=== PATIENT | male | born 1955 | race Caucasian/White ===

== ENCOUNTER → 2024-09-06 | Outpatient (BNVA) | payer MEDICARE, SELFPAY | END | disposition home or self-care (01) | PROVIDERS: PCP Family Medicine; Referring Provider Family Medicine; Visit Provider Urology | DX: N40.1 Benign prostatic hyperplasia with lower urinary tract symptoms (principal); R39.12 Poor urinary stream; I10 Essential (primary) hypertension; E78.00 Pure hypercholesterolemia, unspecified; I25.2 Old myocardial infarction; K21.9 Gastro-esophageal reflux disease without esophagitis | CPT/HCPCS: 51741; 51798 ==

== ENCOUNTER → 2024-09-26 | Outpatient (CLI) | payer MEDICARE, SELFPAY | END | disposition home or self-care (01) | PROVIDERS: PCP Family Medicine | DX: R40.4 Transient alteration of awareness (principal); R53.1 Weakness | CPT/HCPCS: 95816 ==

== ENCOUNTER → 2024-11-27 | Outpatient (CLI) | payer MEDICARE, SELFPAY ==
--- NOTE | 2024-11-27 15:45 | XR_ITS ---
Examination: Knee, left , 3 views Technique: Knee AP, lateral, oblique 3 views Date and time of exam: November 27, 2024 1356 hours INDICATIONS: Knee pain one month. FINDINGS: Moderate to advanced tricompartment osteoarthritis Severe narrowing [id number] medial joint space No fracture IMPRESSION: Moderate to advanced tricompartment osteoarthritis
== END | disposition home or self-care (01) ==
PROVIDERS: PCP Internal Medicine; Referring Provider Internal Medicine; Visit Provider Internal Medicine
DX: M17.12 Unilateral primary osteoarthritis, left knee (principal)
CPT/HCPCS: 73564

== ENCOUNTER → 2024-12-05 | Outpatient (CLI) | payer MEDICARE, SELFPAY ==
[2024-12-05 17:57] LABS: PSA Medicare Annual Scrn 3.42 ng/mL (0-4.00)
== END | disposition home or self-care (01) ==
LOC: COPL 16:59
PROVIDERS: PCP Nurse Practitioner Family; Referring Provider Nurse Practitioner Family; Visit Provider Nurse Practitioner Family
DX: Z12.5 Encounter for screening for malignant neoplasm of prostate (principal)
CPT/HCPCS: 36415; 84153; G0103

== ENCOUNTER → 2024-12-06 | Outpatient (CLI) | payer MEDICARE, SELFPAY | END | disposition home or self-care (01) | LOC: SLDO 13:50 | PROVIDERS: Referring Provider Nurse Practitioner Family; Visit Provider Nurse Practitioner Family | DX: N39.0 Urinary tract infection, site not specified (principal) | CPT/HCPCS: 87086 ==

== ENCOUNTER 2025-05-06 16:11 | Emergency (ER) | payer MEDICARE, SELFPAY ==
[2025-05-06 16:22] VITALS: BP 123/79; PULSE 61; RESP 18; TEMP 36.5; O2SAT 98; BMI 32.5
--- NOTE | 2025-05-06 16:27 | XR_ITS ---
Examination: CT abdomen and pelvis without contrast. Coronal 3-D reconstructions. Sagittal 2-D reconstructions. Date and time of exam:May 06, 2025, 1635 hrs., Comparison March 23, 2023 Indications: Severe epigastric pain nausea vomiting beginning 4 hours ago CTDI: vol (mGy): 9.39 DLP: (mGycm): 593. Technique: Axial images of the abdomen have been obtained, 3 mm slice thickness Intravenous contrast material has not been administered. Low dose protocols were performed. One or more of the following dose reduction techniques were used; automated exposure control, adjustment of the mA and/or KV according to patient size, use of iterative reconstruction technique. Findings: No focal liver or splenic lesions No gallstones No pancreatic mass 19 mm fat-containing left adrenal nodule Absent right kidney Solid masses left kidney, anteriorly 27 mm, posteriorly 35 mm Normal appendix Hematoma in the left rectus muscle, 5.8 x 3.6 x 3.6 cm Dilated small bowel loops in the anterior abdomen Left perinephric stranding Prostate is irregular contour, AP dimension 4.6 cm Urinary bladder wall thickening up to 4 mm Advanced degenerative disc disease L4-L5 Impression: Recommend CT scan abdomen pelvis post contrast follow-up to confirm 2 solid left renal mass lesions Hematoma in the left rectus muscle 5.8 x 3.6 x 3.6 cm Prostatomegaly, prostate irregular contour, clinical correlation advised
--- NOTE | 2025-05-06 16:28 | PD.EDRME ---
Rapid Medical Screening Exam RME Arrival date/time: 05/06/25 16:11 This is a case of 69-year-old male with history of gastric and kidney cancer coronary artery disease came in in the emergency room due to generalized abdominal pain nausea vomiting denies any constipation diarrhea and denies any blood in stool persistence of the symptoms this patient decided to start consult her in the emergency room Chief Complaint: Abdominal Pain Time Seen by Provider: 05/06/25 16:15 Vital signs: Vital Signs Temperature 97.7 F 05/06/25 16:22 Pulse Rate 61 05/06/25 16:22 Respiratory Rate 18 05/06/25 16:22 Blood Pressure 123/79 05/06/25 16:22 Pulse Oximetry (%) 98 05/06/25 16:22 Oxygen Delivery Method Room Air 05/06/25 16:22
[2025-05-06 16:57] LABS: Basophils # (Auto) 0.0 Thou/mm3 (0.0-0.2); Basophils % (Auto) 0 % (0-2.5); Eosinophils # (Auto) 0.3 Thou/mm3 (0.0-0.5); Eosinophils % (Auto) 3 % (0-10); Hematocrit 44.0 % (41.0-53.0); Hemoglobin 15.4 g/dL (13.5-16.0); Immature Granulocytes Auto 0.02 Thou/mm3 (0.00-0.00); Lymphocytes # (Auto) 2.1 Thou/mm3 (1.0-4.8); Lymphocytes % (Auto) 23 % (10-50); Mean Corpuscular HGB Conc 35.0 g/dl (31.0-37.0); Mean Corpuscular Hemoglobin 28.6 pg (25.0-35.0); Mean Corpuscular Volume 82 fL (80-100); Monocytes # (Auto) 0.6 Thou/mm3 (0.0-0.8); Monocytes % (Auto) 7 % (0-12); Neutrophils # (Auto) 5.8 Thou/mm3 (1.8-7.7); Neutrophils % (Auto) 66 % (37-80); Nucleated Red Blood Cell # 0.00 Thou/mm3 (0.00-0.00); Nucleated Red Blood Cell % 0 /100 WBC (0); Platelet Count 185 Thou/mm3 (140-440); RDW Standard Deviation 39.8 fL (35.1-43.9); Red Blood Count 5.39 Miln/mm3 (4.50-5.90); White Blood Count 8.8 Thou/mm3 (3.8-10.6)
[2025-05-06 17:35] LABS: Alanine Aminotransferase 24 U/L (10-49); Albumin, Serum 4.5 gm/dL (3.4-4.8); Albumin/Globulin Ratio 1.7 (1.2-2.2); Alkaline Phosphatase 107 U/L (46-116); Anion Gap 15 (7-16); Aspartate Amino Transferase 28 U/L (0-34); BUN/Creatinine Ratio 18 Ratio (12-20); Bilirubin,Total 0.7 mg/dL (0.3-1.2); Blood Urea Nitrogen 21 mg/dL (9-23); Calcium 10.4 mg/dL (8.3-10.6); Calcium (Corrected) 10.4 mg/dL (8.5-10.1); Carbon Dioxide 21.1 mMol/L (20.0-31.0); Chloride 104 mMol/L (98-107); Creatinine (Component) 1.2 mg/dL (0.6-1.3); Estimated Creatinine Clearance 68.6 mL/min (>60); Globulin 2.7 gm/dL (2.3-3.5); Glucose 156 mg/dL (74-106); Lipase 45 U/L (12-53); Osmolality,Calculated 285 (275-295); Potassium 3.8 mMol/L (3.4-5.1); Sodium 140 mMol/L (136-145); Total Protein 7.2 gm/dL (5.7-8.2); eGFR > 60 See Note
[2025-05-06 17:46] LABS: Collection Type, Urine Clean Catch
[2025-05-06 18:25] LABS: Amorphous Crystals,Urine Present (Absent); Bilirubin,Urine Negative (Negative); Blood,Urine Negative (Negative); Clarity,Urine Clear (Clear/Hazy); Color,Urine Yellow (Lt Yel-Yel); Glucose, Urine 4+ (Negative); Ketones,Urine Negative (Negative); Leukocyte Esterase,Urine Negative (Negative); Nitrite,Urine Negative (Negative); PH,Urine 5.5 (5.0-7.0); Protein,Urine Negative (Neg - Trace); RBC,Urine < 1 /hpf (0-3); Specific Gravity,Urine 1.032 (1.001-1.035); Squamous Epithelial Cell,Urine < 1 /hpf (0-5); Urobilinogen,Urine Negative mg/dL (0.0-1.0); WBC,Urine 5 /hpf (0-5)
[2025-05-06] MEDS: ONDANSETRON ODT 4 MG TABRAP PO (18:31)
[2025-05-06] MEDS: MG HYD/AL HYD/SIME (Maalox Reg) SUSP 30 ML UDC PO (18:31)
[2025-05-06] MEDS: LIDOCAINE VISCOUS 2% 15 ML UDC PO (18:31)
[2025-05-06] MEDS: HYDROcodone/APAP 5/325 TABLET 1 TAB PO (18:32)
[2025-05-06] MEDS: FAMOTIDINE 20 MG TABLET 40 MG PO (18:33)
--- NOTE | 2025-05-06 18:44 | PD.EDABDPN ---
ED Abdominal Pain RME/HPI General Chief Complaint: Abdominal Pain Stated complaint: ABD PAIN X 4 HRS Time seen by provider: 05/06/25 16:15 Arrival date/time: 05/06/25 16:11 RME / HPI RME / HPI narrative: 05/06/25 16:11 This is a case of 69-year-old male with history of gastric and kidney cancer coronary artery disease came in in the emergency room due to generalized abdominal pain nausea vomiting denies any constipation diarrhea and denies any blood in stool persistence of the symptoms this patient decided to start consult her in the emergency room ------- See MDM for Dr. An's HPI documentation. Related Data Home Medications ?Medication ?Instructions ?Recorded ?Confirmed aspirin 81 mg chewable tablet 81 mg PO QDAY 11/19/20 09/06/24 atorvastatin 80 mg tablet 80 mg PO QDAY 11/19/20 09/06/24 carvedilol 6.25 mg tablet (Coreg) 6.25 mg PO DAILY PRN Hypertension 08/12/22 09/06/24 clopidogrel 75 mg tablet 75 mg PO QDAY 08/12/22 09/06/24 ezetimibe 10 mg tablet 10 mg PO QDAY 08/12/22 09/06/24 furosemide 20 mg tablet 20 mg PO QDAY 12/31/22 09/06/24 sacubitril 49 mg-valsartan 51 mg 1 tab PO BID 12/31/22 09/06/24 tablet (Entresto) tamsulosin 0.4 mg capsule 0.4 mg PO QHS 04/25/23 09/06/24 spironolactone 25 mg tablet 25 mg PO QDAY 06/12/24 09/06/24 metformin 1,000 mg tablet 1,000 mg PO BID 06/18/24 09/06/24 metoprolol succinate 100 mg 100 mg PO DAILY 06/18/24 09/06/24 tablet,extended release 24 hr hydrocortisone 5 mg tablet 5 mg PO BID 06/19/24 09/06/24 nitroglycerin 0.4 mg sublingual 0.4 mg buccal PRN PRN Chest Pain 06/19/24 09/06/24 tablet Previous Rx's ?Medication ?Instructions ?Recorded amoxicillin 875 mg-potassium 1 tab PO BID #26 tabs 06/19/24 clavulanate 125 mg tablet doxycycline hyclate 100 mg capsule 100 mg PO BID #26 caps 06/19/24 acetaminophen 300 mg-codeine 30 mg 2 tab PO Q8H PRN pain #20 tabs 05/06/25 tablet ondansetron 4 mg disintegrating 4 mg PO TID PRN nausea and 05/06/25 tablet vomiting 30 days #10 tabs Allergies Allergy/AdvReac Type Severity Reaction Status Date / Time No Known Allergies Allergy Verified 05/06/25 16:14 Review of Systems Review of Systems Systems Reviewed: All systems reviewed, normal except as documented Past Medical History Past Medical History NEUROLOGIC: Negative Neurological Disorders CARDIAC: Positive Cardiac Disorders, Myocardial Infarction (x3), Angina (no per pt), Hypercholesterolemia and Hypertension; Negative Congestive Heart Failure RESPIRATORY: Positive Sleep Apnea (cpap at night); Negative Chronic Obstructive Pulmonary Disease (COPD) GASTROINTESTINAL: Positive Gastrointestinal Disorders and Gastroesophageal Reflux Disease GENITOURINARY: Negative Genitourinary Disorders or Renal Disease MUSCULOSKELETAL: Positive Musculoskeletal Disorders (Left knee crooked walk per pt- Physical Therapy 20x need 10 more sessions.) and Arthritis ENDOCRINE: Negative Endocrine Disorders, Diabetes Mellitus Type 1 or Diabetes Mellitus Type 2 HEMATOLOGIC: Negative Blood Disorders OTHER HISTORY: Positive Cancer (renal cell carcinoma); Negative Autoimmune Disease, Falls, Blood Transfusions, Blood Transfusion Reaction, Anesthesia Reactions, Chemotherapy or Radiation Therapy Family History FAMILY HISTORY: Positive Family Cancer (cousin x2) Surgical History SURGICAL: Positive Cardiac Surgery, Coronary Stent (x7) and Nephrectomy Social History SMOKING STATUS: Never smoker SECOND HAND EXPOSURE: No ED Exam Narrative Physical exam: See MDM for Dr. An's physical exam documentation. Course Quality Measures none Orders Category Date Time Status Bedside COVID-19 Antigen Test NOW Care 05/06/25 18:45 Completed Bedside Influenza A&B Antigen Test NOW Care 05/06/25 18:45 Completed Saline [Insert IV] NOW Care 05/06/25 18:[address] abdomen pelvis wo con Stat Exams 05/06/25 16:27 Completed US abdomen limited Stat Exams 05/06/25 18:46 Completed Amylase Stat Lab 05/06/25 16:51 Completed CBC Stat Lab 05/06/25 16:51 Completed Comprehensive Metabolic Panel Stat Lab 05/06/25 16:51 Completed Lipase Stat Lab 05/06/25 16:51 Completed Magnesium Stat Lab 05/06/25 16:51 Completed Urinalysis Stat Lab 05/06/25 17:20 Completed Famotidine [Pepcid] Med 05/06/25 18:16 Discontinued 40 mg PO X1 ONE HYDROcodone*/APAP 5/325 [[place] 5/325] Med 05/06/25 18:16 Discontinued 1 tab PO X1 ONE HYDROmorphone INJ [Dilaudid Inj] Med 05/06/25 18:45 Discontinued 1 mg IVP X1 ONE HYDROmorphone INJ [Dilaudid Inj] Med 05/06/25 19:05 Discontinued 2 mg IVP X1 ONE Lidocaine 2% Viscous [Xylocaine 2% Viscous] Med 05/06/25 18:16 Discontinued 15 ml PO X1 ONE Ondansetron Inj [Zofran Inj] Med 05/06/25 18:45 Discontinued 4 mg IVP X1 ONE Ondansetron Odt [Zofran Odt] Med 05/06/25 18:16 Discontinued 4 mg PO X1 ONE Sodium Chloride 0.9% 1000 ml [Ns] 1,000 ml Med 05/06/25 18:45 Discontinued IV 999 mls/hr mg Hyd/Al Hyd/[place] Susp [Maalox Susp] Med 05/06/25 18:16 Discontinued 30 ml PO X1 ONE Vital Signs Vital signs: Vital Signs Temperature 97.7 F 05/06/25 16:22 Pulse Rate 61 05/06/25 16:22 Respiratory Rate 18 05/06/25 16:22 Blood Pressure 123/79 05/06/25 16:22 Pulse Oximetry (%) 98 05/06/25 16:22 Oxygen Delivery Method Room Air 05/06/25 16:22 Abdominal Pain MDM MDM Narrative MDM Narrative:: This section includes all my notes and documentations, including HPI, PE, and ED course. Jc An MD HPI: 69yo male with a history of kidney cancer s/p right nephrectomy, 3 MIs s/p 7 stents, pancreatic cancer with muscular invasion, HTN, DM presents to the ED for complaints of epigastric pain, nausea, and vomiting that started this afternoon, several hours ago. Patient states his symptoms started after lunch. He vomited everything he ate and his pain has persisted. No other complaints reported. ROS: All negative except as documented in HPI. Physical Exam: General: Alert and oriented. In obvious pain Eyes: Conjunctivae and lids clear. ENT: No nasal congestion. Neck: Supple. Heart: RRR. Lungs: No respiratory distress. Good air movement. No rhonchi, wheezing, rales. Abdomen: Soft, diffuse abdominal pain that's difficult to localize. Normal bowel sounds. No distension. No rebound or guarding. Back: No CVA tenderness. Skin: Warm and dry. Neuro: Alert and oriented X 3. I reviewed all diagnostic test results. My review of the abdominal ultrasound report is NAD. My review of the CT abdomen pelvis report is no acute findings. Blood tests and urine tests are unremarkable. COVID/Influenza negative. At this point, diagnoses include: Stomach flu Treatment here from me included: Dilaudid Zofran IV fluid Significant improvement noted. Recommend outpatient management. Based on my best medical judgment, made decision no further evaluation or treatment indicated at this time. Patient understands and agrees to the discharge instructions customized and printed, see below. Discharge Instructions from Dr. An: 1. After evaluation, you have stomach flu. See attached handout on gastroenteritis. 2. This is caused by virus germs. And we do not have good medications to kill the virus germs. But your immune system will fight it off. 3. Your job is to stay hydrated. But nothing by mouth for 12 hours to rest your stomach. Then clear liquid diet for 24 hours then advance diet slowly as tolerated. Zofran for nausea/vomiting. Increase oral fluid and maintain clear urine. If dark or yellow, increase oral fluid. 4. Do not take any medications to stop your diarrhea. But try to replenish the fluid and electrolytes you are losing. 5. Some good choices are water (but not only water because it will cause electrolyte abnormalities), sports drinks like Gatorade (with less sugar content), coconut water, chicken stock, and other fluid with electrolytes (like Pedialyte). 6. See your private doctor on 05/08/25 for recheck and further care. Ask for help until you are completely better. Ask to review all test results and official radiology reports, to make sure you receive all necessary follow-ups and monitoring. 7. Seek immediate medical care with worsening or with any concerns. Jc An MD Patient data External records reviewed:: [facility] previous records (Per chart review, patient was admitted here on 06/18/24 for AMS.) Clinical information provided by:: patient Social determinants that could affect healthcare access:: none Patient has the following chronic illnesses:: kidney cancer s/p right nephrectomy, 3 MIs s/p 7 stents, pancreatic cancer with muscular invasion, HTN, DM How is presenting disease/condition affected by chronic disease/condition?: exacerbated by Evaluation data The following diagnostics were reviewed and interpreted by me:: lab results and radiology exam(s) Lab and/or radiology exams considered but not ordered:: none Interpretation Summary: I reviewed all diagnostic test results. My review of the abdominal ultrasound report is NAD. My review of the CT abdomen pelvis report is no acute findings. Blood tests and urine tests are unremarkable. COVID/Influenza negative. Medications / Prescriptions Medications or Prescriptions considered but not ordered:: none Medication administrations:: Medication Administration History Discontinued Medications Hydrocodone Bitart/Acetaminophen (Hydrocodone/Apap 5/325 Tablet) 1 tab PO X1 ONE Stop: 05/06/25 18:17 Last Admin: 05/06/25 18:32 Dose: 1 tab Documented By: CJ Al Hydrox/Mg Hydrox/Simethicone (Mg Hyd/Al Hyd/[place] (Maalox Reg) Susp 30 Ml Udc) 30 ml PO X1 ONE Stop: 05/06/25 18:17 Last Admin: 05/06/25 18:31 Dose: 30 ml Documented By: CJ Famotidine (Famotidine 20 Mg Tablet) 40 mg PO X1 ONE Stop: 05/06/25 18:17 Last Admin: 05/06/25 18:33 Dose: 40 mg Documented By: CJ Hydromorphone HCl (Hydromorphone Inj 2 Mg/Ml Vial) 1 mg IVP X1 ONE Stop: 05/06/25 18:46 Last Admin: 05/06/25 19:31 Dose: Not Given Documented By: MARQUITA Non-Admin Reason: Cancelled by Provider Hydromorphone HCl (Hydromorphone Inj 2 Mg/Ml Vial) 2 mg IVP X1 ONE Stop: 05/06/25 19:06 Last Admin: 05/06/25 19:31 Dose: 2 mg Documented By: MARQUITA Sodium Chloride (Ns) 1,000 mls @ 999 mls/hr IV .Q1H1M ONE Stop: 05/06/25 19:45 Last Infusion: 05/06/25 20:35 Dose: Infused Documented By: Admin: 05/06/25 19:30 Dose: 999 mls/hr Documented By: MARQUITA Lidocaine HCl (Lidocaine Viscous 2% 15 Ml Udc) 15 ml PO X1 ONE Stop: 05/06/25 18:17 Last Admin: 05/06/25 18:31 Dose: 15 ml Documented By: CJ Ondansetron HCl (Ondansetron Odt 4 Mg Tabrap) 4 mg PO X1 ONE; Protocol Stop: 05/06/25 18:17 Last Admin: 05/06/25 18:31 Dose: 4 mg Documented By: CJ Ondansetron HCl (Ondansetron Inj 2 Mg/Ml Inj 2 Ml) 4 mg IVP X1 ONE; Protocol Stop: 05/06/25 18:46 Last Admin: 05/06/25 19:31 Dose: 4 mg Documented By: MARQUITA From nm, patient received IV fluid and Dilaudid 2 mg IV and Zofran 4 mg IV. Consultations Consultation(s) initiated? (list below): No Diagnosis Differential diagnosis abdominal pain: acute appendicitis, calculus of kidney, constipation, diverticulitis, endometriosis, gastroenteritis, pancreatitis, small bowel obstruction and other (Gastroenteritis) Most likely diagnosis given after review of the tests above:: Stomach flu Admission Indicated Admission indicated?: not indicated Explain why admission is indicated or not indicated:: With significant improvement and no condition needing emergent intervention, there was no indication for admission. Admission Request Was there a request for admission?: No Disposition Plan Disposition Plan: Discharge Discharge Attestation Discharge Attestation: The patient and all family members were given an opportunity to ask questions and understood the discharge instructions. Discharge instructions specifically effects, indications for sooner follow up or return to the emergency department, and the expected course of current diagnosis. Patient condition: Stable Discharge Plan Plan Patient Disposition: HOME (Self Care) Prescriptions/Referrals Prescriptions/Med Rec: New acetaminophen-codeine 300-30 mg tablet 2 tab PO Q8H MDD 6 PRN (Reason: pain) Qty: 20 0RF ondansetron 4 mg tablet,disintegrating 4 mg PO TID PRN (Reason: nausea and vomiting) 30 Days Qty: 10 0RF No Action ezetimibe 10 mg tablet 10 mg PO QDAY carvedilol [Coreg] 6.25 mg tablet 6.25 mg PO DAILY PRN (Reason: Hypertension) Rx Instructions: must administer with a meal/food. clopidogrel 75 mg tablet 75 mg PO QDAY Entresto 49-51 mg tablet 1 tab PO BID furosemide 20 mg tablet 20 mg PO QDAY tamsulosin 0.4 mg capsule 0.4 mg PO QHS spironolactone 25 mg tablet 25 mg PO QDAY atorvastatin 80 mg Tablet 80 mg PO QDAY aspirin 81 mg Tablet,Chewable 81 mg PO QDAY metoprolol succinate 100 mg tablet extended release 24 hr 100 mg PO DAILY Patient Comments: TAKE 1 TABLET BY MOUTH DAILY metformin 1,000 mg tablet 1,000 mg PO BID Patient Comments: TAKE 1 TABLET BY MOUTH TWICE DAILY WITH A MEAL Rx Instructions: with a meal hydrocortisone 5 mg Tablet 5 mg PO BID nitroglycerin 0.4 mg Tablet, Sublingual 0.4 mg BUCCAL PRN PRN (Reason: Chest Pain) amoxicillin-pot clavulanate 875-125 mg tablet 1 tab PO BID Qty: 26 0RF doxycycline hyclate 100 mg capsule 100 mg PO BID Qty: 26 0RF Referrals: Kunal Iraheta MD [Primary Care Provider, Family Practice] - In 1 week Problem List Clinical Impression: Stomach flu Patient/Caregiver Discharge Instructions Discharge Activity: activity as tolerated Education Materials: ED Gastroenteritis, Viral (Adult) Additional Instructions: Discharge Instructions from Dr. An: 1. After evaluation, you have stomach flu.? See attached handout on gastroenteritis. 2. This is caused by virus germs.? And we do not have good medications to kill the virus germs.? But your immune system will fight it off. 3. Your job is to stay hydrated.? But nothing by mouth for 12 hours to rest your stomach. Then clear liquid diet for 24 hours then advance diet slowly as tolerated. Zofran for nausea/vomiting.? Increase oral fluid and maintain clear urine.? If dark or yellow, increase oral fluid. 4. Do not take any medications to stop your diarrhea.? But try to replenish the fluid and electrolytes you are losing. 5. Some good choices are water (but not only water because it will cause electrolyte abnormalities), sports drinks like Gatorade (with less sugar content), coconut water, chicken stock, and other fluid with electrolytes (like Pedialyte). 6. See your private doctor on 05/08/25 for recheck and further care. Ask for help until you are completely better. Ask to review all test results and official radiology reports, to make sure you receive all necessary follow-ups and monitoring. 7. Seek immediate medical care with worsening or with any concerns. Print Language: Japanese Stand Alone Forms: [facility] Award Info., Patient Portal Info Letter
--- NOTE | 2025-05-06 18:46 | XR_ITS ---
Examination: Abdomen sonogram, Limited Date and time of exam: May 06, 2025 at 2042 hrs. Indications: Diagnosis renal cell carcinoma, onset epigastric pain today Technique: Real-time lee scale transabdominal sonographic images of the upper abdomen obtained. Findings: Negative for gallstones Normal common bile duct 0.3 cm Pancreas obscured by bowel gas Liver 14.2 cm fatty infiltration Normal hepatopedal portal venous flow Patent IVC Impression: Normal gallbladder
[2025-05-06 19:07] LABS: Amylase 68 U/L (30-118); Magnesium 2.2 mg/dL (1.6-2.6)
[2025-05-06] MEDS: SODIUM CHLORIDE 0.9% 1000 ML 1,000 ML 999 ML IV (19:30)
[2025-05-06] MEDS: HYDROmorphone INJ 2 MG/ML VIAL IVP (19:31)
[2025-05-06] MEDS: ONDANSETRON INJ 2 MG/ML INJ 2 ML 4 MG IVP (19:31)
[2025-05-06 19:36] VITALS: BP 135/83; PULSE 68; RESP 15; O2SAT 98
--- NOTE | 2025-05-06 19:44 | PC.NURSE ---
PT ARRIVED TO ED WITH FOR 1 DAY OF ABDOMINAL PAIN WITH N/V. PT STATES HE HAS A PMH OF CANCER (UNKNOWN OF NAME), EL (USES CPAP) AND STATES THAT HE HAS SHALLOW BREATHING, 3 PA, DM, AND HTN.
[2025-05-06 21:42] VITALS: BP 135/84; PULSE 69; RESP 18; TEMP 36.8; O2SAT 97
== END 2025-05-06 21:46 | disposition home or self-care (01) ==
PROVIDERS: Nurse Practitioner Family; Emergency Provider Emergency Medicine; PCP Family Medicine
DX: A08.4 Viral intestinal infection, unspecified (principal)
CPT/HCPCS: 36415; 74176; 76705; 80053; 81001; 82150; 83690; 83735; 85025; 87400; 87811; 96361; 96374; 96375; 99284; J1171; J2405; J3490; J7030; Q0162; A9270

== ENCOUNTER 2025-05-07 01:57 | Inpatient (IN) | payer MEDICARE, SELFPAY ==
[2025-05-07] VITALS (9 sets, daily range): BP systolic 125–168; BP diastolic 70–95; PULSE 70–88; RESP 16–19; TEMP 36.1–37.8; O2SAT 95–99; BMI 32.5; BMI 18.1
--- NOTE | 2025-05-07 02:09 | XR_ITS ---
Examination: CT chest with intravenous contrast CT abdomen with intravenous contrast CT pelvis with intravenous contrast 2-D coronal and sagittal reconstructions Time of exam: May 07, 2025, 0436 hrs. Indications: Onset chest and upper abdominal pain today CTDI: vol (mGy) : 11.2 DLP: (mGycm): 880 Technique: Multiple axial images of the chest, abdomen and pelvis with intravenous contrast, 3.0 mm slice thickness. Images obtained post intravenous injection Isovue 370 60 cc. 2-D sagittal and coronal reconstructions. Low dose protocols were performed. One or more of the following dose reduction techniques were used; automated exposure control, adjustment of the mA and/or KV according to patient size, use of iterative reconstruction technique. Findings: No thoracic aortic aneurysmal dilatation No pulmonary artery filling defects. Heavy calcification left anterior descending coronary artery. 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 Multiple solid left renal mass lesions. 3 cm enhancing mass in the pancreatic head. Enhancing soft tissue metastatic mass in the left rectus muscle. Small bowel obstruction, consider Gastrografin small bowel series follow-up
--- NOTE | 2025-05-07 02:13 | PD.EDABDPN ---
ED Abdominal Pain RME/HPI General Chief Complaint: Abdominal Pain Stated complaint: UPPER ABD PAIN Time seen by provider: 05/07/25 02:43 Arrival date/time: 05/07/25 01:57 RME / HPI RME / HPI narrative: See MDM for Dr. An's HPI documentation. Related Data Home Medications ?Medication ?Instructions ?Recorded ?Confirmed aspirin 81 mg chewable tablet 81 mg PO QDAY 11/19/20 09/06/24 atorvastatin 80 mg tablet 80 mg PO QDAY 11/19/20 09/06/24 carvedilol 6.25 mg tablet (Coreg) 6.25 mg PO DAILY PRN Hypertension 08/12/22 09/06/24 clopidogrel 75 mg tablet 75 mg PO QDAY 08/12/22 09/06/24 ezetimibe 10 mg tablet 10 mg PO QDAY 08/12/22 09/06/24 furosemide 20 mg tablet 20 mg PO QDAY 12/31/22 09/06/24 sacubitril 49 mg-valsartan 51 mg 1 tab PO BID 12/31/22 09/06/24 tablet (Entresto) tamsulosin 0.4 mg capsule 0.4 mg PO QHS 04/25/23 09/06/24 spironolactone 25 mg tablet 25 mg PO QDAY 06/12/24 09/06/24 metformin 1,000 mg tablet 1,000 mg PO BID 06/18/24 09/06/24 metoprolol succinate 100 mg 100 mg PO DAILY 06/18/24 09/06/24 tablet,extended release 24 hr hydrocortisone 5 mg tablet 5 mg PO BID 06/19/24 09/06/24 nitroglycerin 0.4 mg sublingual 0.4 mg buccal PRN PRN Chest Pain 06/19/24 09/06/24 tablet Previous Rx's ?Medication ?Instructions ?Recorded amoxicillin 875 mg-potassium 1 tab PO BID #26 tabs 06/19/24 clavulanate 125 mg tablet doxycycline hyclate 100 mg capsule 100 mg PO BID #26 caps 06/19/24 acetaminophen 300 mg-codeine 30 mg 2 tab PO Q8H PRN pain #20 tabs 05/06/25 tablet ondansetron 4 mg disintegrating 4 mg PO TID PRN nausea and 05/06/25 tablet vomiting 30 days #10 tabs Allergies Allergy/AdvReac Type Severity Reaction Status Date / Time No Known Allergies Allergy Verified 05/07/25 02:04 Review of Systems Review of Systems Systems Reviewed: All systems reviewed, normal except as documented Past Medical History Past Medical History NEUROLOGIC: Negative Neurological Disorders CARDIAC: Positive Cardiac Disorders, Myocardial Infarction (3x + stents), Angina, Hypercholesterolemia and Hypertension; Negative Congestive Heart Failure RESPIRATORY: Positive Sleep Apnea; Negative Chronic Obstructive Pulmonary Disease (COPD) GASTROINTESTINAL: Positive Gastrointestinal Disorders and Gastroesophageal Reflux Disease GENITOURINARY: Negative Genitourinary Disorders or Renal Disease MUSCULOSKELETAL: Positive Musculoskeletal Disorders and Arthritis ENDOCRINE: Positive Diabetes Mellitus Type 2; Negative Endocrine Disorders or Diabetes Mellitus Type 1 HEMATOLOGIC: Positive Blood Disorders (blood cancer unknown of name) OTHER HISTORY: Positive Cancer; Negative Autoimmune Disease, Falls, Blood Transfusions, Blood Transfusion Reaction, Anesthesia Reactions, Chemotherapy or Radiation Therapy Family History FAMILY HISTORY: Positive Family Cancer Surgical History SURGICAL: Positive Cardiac Surgery, Coronary Stent and Nephrectomy Social History SMOKING STATUS: Never smoker SECOND HAND EXPOSURE: No ED Exam Narrative Physical exam: See [facility] for Dr. An's physical exam documentation. Course Quality Measures none Orders Category Date Time Status CT Screening NOW Care 05/07/25 02:09 Active Saline [Insert IV] NOW Care 05/07/25 02:[address] chest abdomen pelvis w Stat Exams 05/07/25 02:09 Taken Amylase Stat Lab 05/07/25 02:40 Completed Beta Hydroxybutyrate Stat Lab 05/07/25 02:40 Completed Bilirubin,Direct Stat Lab 05/07/25 02:40 Completed Blood Culture (Lab) Stat Lab 05/07/25 02:55 Received CBC Stat Lab 05/07/25 02:40 Completed CMP [Comprehensive Metabolic Panel] Stat Lab 05/07/25 02:40 Completed CRP [C-Reactive Protein] Stat Lab 05/07/25 02:40 Completed ESR [Sed Rate (ESR)] Stat Lab 05/07/25 02:40 Completed Lactate (Lactic Acid) Stat Lab 05/07/25 02:40 Results Lipase Stat Lab 05/07/25 02:40 Completed Magnesium Stat Lab 05/07/25 02:40 Completed Procalcitonin Stat Lab 05/07/25 02:40 Completed VBG [Venous Blood Gas] Stat Lab 05/07/25 02:40 Completed Famotidine Inj [Pepcid Inj] Med 05/07/25 02:08 Discontinued 20 mg IVP X1 ONE HYDROmorphone INJ [Dilaudid Inj] Med 05/07/25 02:08 Discontinued 2 mg IVP X1 ONE Ondansetron Inj [Zofran Inj] Med 05/07/25 02:08 Discontinued 4 mg IVP X1 ONE Pantoprazole Inj [Protonix Inj] Med 05/07/25 02:08 Discontinued 40 mg IVP X1 ONE Sodium Chloride 0.9% 1000 ml [Ns] 1,000 ml Med 05/07/25 02:08 Discontinued IV 999 mls/hr Vital Signs Vital signs: Vital Signs Pulse Rate 76 05/07/25 02:51 Respiratory Rate 18 05/07/25 02:51 Blood Pressure 156/82 H 05/07/25 02:51 Pulse Oximetry (%) 96 05/07/25 02:51 Oxygen Delivery Method Room Air 05/07/25 02:51 Abdominal Pain MDM MDM Narrative MDM Narrative:: This section includes all my notes and documentations, including HPI, PE, and ED course. Jc An MD HPI: 69yo male here with severe abdominal pain and vomiting. I saw the patient here last night with the same complaints. Started after eating yesterday. PMH significant for kidney cancer s/p right nephrectomy, DE X 3 s/p 7 stents, pancreatic cancer with muscular invasion, HTN, and DM. Diagnostic test results from last night: My review of the abdominal ultrasound report is NAD. My review of the abdominal CT (no contrast) report is no acute findings. Blood tests and urine tests unremarkable. COVID/Influenza negative. Diagnosis of stomach flu made. Discharged after significant improvement with IV fluid and Zofran and Dilaudid. At this point, diagnoses include: Stomach flu Treatment here from me included: Dilaudid Zofran IV fluid With severe abdominal pain and vomiting just prior to arrival, he return for further care. ROS: All negative except as documented in HPI. Physical Exam: General: Alert and oriented. In severe pain. Eyes: Conjunctivae and lids clear. ENT: No nasal congestion. Neck: Supple. Heart: RRR. Lungs: No respiratory distress. Good air movement. No rhonchi, wheezing, rales. Abdomen: Soft with severe tenderness, difficult to localize. Decreased bowel sounds. No distension. No rebound or guarding. Back: No CVA tenderness. Skin: Warm and dry. Neuro: Alert and oriented X 3. I ordered IV fluid, Zofran 4 mg IV, Dilaudid 2 mg IV, famotidine 20 mg IV, Protonix 40 mg IV, and diagnostic tests. At 6 AM on 05/07/2025 care of the patient was transferred to Dr. Bangura. Jc An MD Patient data External records reviewed:: [facility] previous records (Per chart review, patient was seen here yesterday for the same complaint.) Clinical information provided by:: patient Social determinants that could affect healthcare access:: none Patient has the following chronic illnesses:: kidney cancer s/p right nephrectomy, 3 MIs s/p 7 stents, pancreatic cancer with muscular invasion, DM, HTN, HLD How is presenting disease/condition affected by chronic disease/condition?: uneffected by Evaluation data The following diagnostics were reviewed and interpreted by me:: lab results and radiology exam(s) Lab and/or radiology exams considered but not ordered:: none Interpretation Summary: Diagnostic test results are pending. Medications / Prescriptions Medications or Prescriptions considered but not ordered:: none Medication administrations:: Medication Administration History Discontinued Medications Famotidine (Famotidine Inj 10 Mg/Ml Vial 2 Ml) 20 mg IVP X1 ONE Stop: 05/07/25 02:09 Last Admin: 05/07/25 02:45 Dose: 20 mg Documented By: MARQUITA Hydromorphone HCl (Hydromorphone Inj 2 Mg/Ml Vial) 2 mg IVP X1 ONE Stop: 05/07/25 02:09 Last Admin: 05/07/25 02:45 Dose: 2 mg Documented By: MARQUITA Sodium Chloride (Ns) 1,000 mls @ 999 mls/hr IV .Q1H1M ONE Stop: 05/07/25 03:08 Last Infusion: 05/07/25 03:44 Dose: Infused Documented By: Admin: 05/07/25 02:40 Dose: 999 mls/hr Documented By: MARQUITA Ondansetron HCl (Ondansetron Inj 2 Mg/Ml Inj 2 Ml) 4 mg IVP X1 ONE; Protocol Stop: 05/07/25 02:09 Last Admin: 05/07/25 02:45 Dose: 4 mg Documented By: MARQUITA Pantoprazole Sodium (Pantoprazole Inj 40 Mg Vial) 40 mg IVP X1 ONE Stop: 05/07/25 02:09 Last Admin: 05/07/25 02:45 Dose: 40 mg Documented By: MARQUITA IV fluid Dilaudid Pepcid Protonix Zofran Consultations Consultation(s) initiated? (list below): No Diagnosis Differential diagnosis abdominal pain: acute appendicitis, calculus of kidney, constipation, diverticulitis, endometriosis, gastroenteritis, pancreatitis, small bowel obstruction and other (Biliary colic, PUD, gastritis, GERD) Most likely diagnosis given after review of the tests above:: Diagnostic test results are pending. Admission Indicated Admission indicated?: not indicated Explain why admission is indicated or not indicated:: Diagnostic test results are pending. Admission Request Was there a request for admission?: No Disposition Plan Disposition Plan: other (specify) (At 6 AM on 05/07/2025 care of the patient was transferred to Dr. Bangura.) Discharge Plan Prescriptions/Referrals Prescriptions/Med Rec: No Action ezetimibe 10 mg tablet 10 mg PO QDAY carvedilol [Coreg] 6.25 mg tablet 6.25 mg PO DAILY PRN (Reason: Hypertension) Rx Instructions: must administer with a meal/food. clopidogrel 75 mg tablet 75 mg PO QDAY Entresto 49-51 mg tablet 1 tab PO BID furosemide 20 mg tablet 20 mg PO QDAY tamsulosin 0.4 mg capsule 0.4 mg PO QHS spironolactone 25 mg tablet 25 mg PO QDAY atorvastatin 80 mg Tablet 80 mg PO QDAY aspirin 81 mg Tablet,Chewable 81 mg PO QDAY metoprolol succinate 100 mg tablet extended release 24 hr 100 mg PO DAILY Patient Comments: TAKE 1 TABLET BY MOUTH DAILY metformin 1,000 mg tablet 1,000 mg PO BID Patient Comments: TAKE 1 TABLET BY MOUTH TWICE DAILY WITH A MEAL Rx Instructions: with a meal hydrocortisone 5 mg Tablet 5 mg PO BID nitroglycerin 0.4 mg Tablet, Sublingual 0.4 mg BUCCAL PRN PRN (Reason: Chest Pain) amoxicillin-pot clavulanate 875-125 mg tablet 1 tab PO BID Qty: 26 0RF doxycycline hyclate 100 mg capsule 100 mg PO BID Qty: 26 0RF acetaminophen-codeine 300-30 mg tablet 2 tab PO Q8H MDD 6 PRN (Reason: pain) Qty: 20 0RF ondansetron 4 mg tablet,disintegrating 4 mg PO TID PRN (Reason: nausea and vomiting) 30 Days Qty: 10 0RF Referrals: Rick Iraheta MD [Primary Care Provider, Family Practice] - In 1 week Problem List Clinical Impression: Abdominal pain, Vomiting Patient/Caregiver Discharge Instructions Print Language: [place]
[2025-05-07] MEDS: SODIUM CHLORIDE 0.9% 1000 ML 1,000 ML 999 ML IV (02:40)
[2025-05-07] MEDS: FAMOTIDINE INJ 10 MG/ML VIAL 2 ML 20 MG IVP (02:45)
[2025-05-07] MEDS: ONDANSETRON INJ 2 MG/ML INJ 2 ML 4 MG IVP ×2 (02:45→06:34)
[2025-05-07] MEDS: HYDROmorphone INJ 2 MG/ML VIAL IVP (02:45)
[2025-05-07 02:56] LABS: Lactate (Lactic Acid) 2.5 mMol/L (0.4-2.0)
[2025-05-07 02:57] LABS: Basophils # (Auto) 0.0 Thou/mm3 (0.0-0.2); Basophils % (Auto) 0 % (0-2.5); Eosinophils # (Auto) 0.1 Thou/mm3 (0.0-0.5); Eosinophils % (Auto) 2 % (0-10); Hematocrit 43.6 % (41.0-53.0); Hemoglobin 15.1 g/dL (13.5-16.0); Immature Granulocytes Auto 0.03 Thou/mm3 (0.00-0.00); Lymphocytes # (Auto) 1.0 Thou/mm3 (1.0-4.8); Lymphocytes % (Auto) 14 % (10-50); Mean Corpuscular HGB Conc 34.6 g/dl (31.0-37.0); Mean Corpuscular Hemoglobin 29.0 pg (25.0-35.0); Mean Corpuscular Volume 84 fL (80-100); Monocytes # (Auto) 0.5 Thou/mm3 (0.0-0.8); Monocytes % (Auto) 7 % (0-12); Neutrophils # (Auto) 5.7 Thou/mm3 (1.8-7.7); Neutrophils % (Auto) 77 % (37-80); Nucleated Red Blood Cell # 0.00 Thou/mm3 (0.00-0.00); Nucleated Red Blood Cell % 0 /100 WBC (0); Platelet Count 165 Thou/mm3 (140-440); RDW Standard Deviation 41.1 fL (35.1-43.9); Red Blood Count 5.20 Miln/mm3 (4.50-5.90); White Blood Count 7.4 Thou/mm3 (3.8-10.6)
[2025-05-07 03:01] LABS: Beta Hydroxybutyrate 1.3 mmol/L (<0.6)
[2025-05-07 03:17] LABS: Base Excess, Venous 0 (-3-3); O2 Saturation, Venous 71 % (96-97); PCO2, Venous 40 mmHg (36-56); PO2, Venous 36 mmHg (15-58); pH, Venous 7.40 (7.33-7.66)
[2025-05-07 03:19] LABS: Sed Rate (ESR) 18 mm/hr (0-20)
[2025-05-07 03:24] LABS: Alanine Aminotransferase 23 U/L (10-49); Albumin, Serum 4.4 gm/dL (3.4-4.8); Albumin/Globulin Ratio 1.6 (1.2-2.2); Alkaline Phosphatase 110 U/L (46-116); Amylase 49 U/L (30-118); Anion Gap 14 (7-16); Aspartate Amino Transferase 27 U/L (0-34); BUN/Creatinine Ratio 19 Ratio (12-20); Bilirubin,Direct 0.3 mg/dL (0.0-0.3); Bilirubin,Total 1.1 mg/dL (0.3-1.2); Blood Urea Nitrogen 23 mg/dL (9-23); C-Reactive Protein 0.6 mg/dL (0.0-0.9); Calcium 10.4 mg/dL (8.3-10.6); Calcium (Corrected) 10.4 mg/dL (8.5-10.1); Carbon Dioxide 22.8 mMol/L (20.0-31.0); Chloride 104 mMol/L (98-107); Creatinine (Component) 1.2 mg/dL (0.6-1.3); Estimated Creatinine Clearance 68.6 mL/min (>60); Globulin 2.7 gm/dL (2.3-3.5); Glucose 171 mg/dL (74-106); Lipase 37 U/L (12-53); Magnesium 2.2 mg/dL (1.6-2.6); Osmolality,Calculated 288 (275-295); Potassium 4.2 mMol/L (3.4-5.1); Procalcitonin 0.08 ng/ml (0.0-0.49); Sodium 141 mMol/L (136-145); Total Protein 7.1 gm/dL (5.7-8.2); eGFR > 60 See Note
--- NOTE | 2025-05-07 05:51 | PRELIM_ITS ---
CT scan of the chest, abdomen and pelvis with intravenous contrast (axial sections with sagittal and coronal reformats) May 07, 2025 at 0436 hours Clinical History: Chest/abdominal pain. Comparison: No prior study is available for comparison. Findings: Coronary atherosclerosis is noted. Cardiac size is normal. No pericardial effusion pleural effusion or pneumothorax. Consolidation and/or fibrosis in bilateral lung bases. The liver, gallbladder, right adrenal gland are unremarkable. A 2.3 cm left adrenal nodule measuring 21 Hounsfield units. The spleen is unremarkable. A 3.2 x 2.5 cm mass in the pancreatic head. Post right nephrectomy. Multiple complex solid cystic masses in the left kidney, the largest measuring 5 cm. There is mild left perinephric fat stranding. Mild left hydroureteronephrosis. A 4.3 cm enhancing mass in the left rectus abdominis muscle. The urinary bladder is normal. No free intraperitoneal air or fluid. Proximal small bowel is distended with air-fluid levels. Bowel caliber transition point is in the distal jejunum. The appendix is normal, best seen on image 217. There is colonic malrotation, with the colon in the right abdomen. No acute osseous process. Impression: 1. Bibasal consolidation and/or pulmonary fibrosis. 2. Multiple left renal masses suspicious for renal cell carcinoma. 3. Metastatic disease to the pancreatic head and left rectus abdominis muscle. 4. High-grade distal jejunal bowel obstruction, may be on the basis of adhesions. 5. Congenital colonic malrotation. Discussion Details: Results verbally communicated to : Dr. An at 05:46 AM 05/07/2025 Report Electronically Signed By: Ilan Fletcher 05/07/2025 5:50:50 AM [EST]
[2025-05-07 05:52] LABS: Reflex Lactate? Y
--- NOTE | 2025-05-07 06:22 | XR_ITS ---
Examination: AP chest single view. Technique one AP portable upright chest single view Date and time: May 07, 2025, 0645 hrs., Comparison June 18, 2024 Indications: Post orogastric tube placement. Findings: Orogastric tube in the stomach satisfactory position. Mild enlargement cardiac contour. Mild opacity at the lung bases Impression: Mild opacity at the lung bases, consider pneumonia
[2025-05-07] MEDS: HYDROmorphone INJ 2 MG/ML VIAL 1 MG IVP ×4 (06:34→14:10)
[2025-05-07] MEDS: PIPER/TAZO INJ 4.5 GM in SODIUM CHLORIDE 0.9% (POP) 100 ML IV (06:36)
[2025-05-07] MEDS: INSULIN LISPRO (AdmeLOG) 1 UNIT/0.01 ML UNIT SC (06:37)
--- NOTE | 2025-05-07 06:40 | PD.EDADDENDU ---
Emergency Room Addendum <Kiran Arrieta MD - Last Filed: 05/07/25 07:17> Addendum Narrative: Care Resumed for Mr Engel at [address] An. Please see Dr An's note for details. Mr. Engel is a 69 year old male with PMH of CAD s/p 9 stents (on ASA and Plavix, follows Dr Emery in [place]) had 2 stents placed 2 weeks ago,Metastatic Clear Renal cell Cancer on nivolumab/ipilimumab ([facility]) with metastasis to pancreas and rectus abdominus, Hypothyroidism, Type 2 DM, Heart Failure with unknown ejection fraction, dyslipidemia, s/p right nephrectomy, sleep apnea and BPH who presented to [facility] ED initially on 05/06/2025 with the chief complaint of abdominal pain nausea and vomiting that started after lunch, patient was discharged initially attributing the symptoms to stomach flu however he came back again earlier this morning with worsening uncontrollable pain, nausea and vomiting. Patient reported that she had multiple episodes of emesis hasn't had a bowel movement in 2 days, and denies passing flatus currently. He denies any chest pain, shortness of breath, lower extremity edema, headache, dizziness, dysuria and palpitations. Physical Exam General: Awake and in moderate distress complaining of pain, conversational and non-toxic appearing. HEENT: Normocephalic, atraumatic, mucous membranes moist. Heart: Regular rate and rhythm, no murmurs. Lungs: Clear to auscultation with no wheezing or crackles. Abdomen: Soft, distended, nontender, no bowel sounds. Mass in lower abdomen. Neurologic: Alert and oriented x3, no gross neurological deficit, and patient able to move all 4 extremities. Extremities: No edema. Skin: No rash or ecchymoses. Vitals stable, except elevated BP reading CT Chest Abdomen Pelvis preliminary read Bibasal consolidation and/or pulmonary fibrosis, Multiple left renal masses suspicious for renal cell carcinoma, Metastatic disease to the pancreatic head and left rectus abdominis muscle, High-grade distal jejunal bowel obstruction, may be on the basis of adhesions and Congenital colonic malrotation. Labs from earlier today show lacate 2.5, glucose 171, corrected calcium 10.4, Beta OH buty 1.3 ED Rx: NG Tube Placement to LIS, Zofran, Dilaudid, Zosyn, Doxycycline Consults: General Surgeon Dr Magdalena barber Small Bowel Series, LR Mainatanence (H/O HF) Requset for admission: Consulting Team A 07:13 Case Discussed with Hospitalist team, patient accepted for admission Case discussed with Attending Physician Dr. Willem Arrieta MD Internal Medicine PGY-2 Disclaimer: This note was dictated by speech recognition. Minor errors in environmental compliance officer may be present due to voice recognition software. Attestation <Janine Varma - Last Filed: 05/07/25 13:26> Attestation I, Dr. Bangura, have reviewed the history, exam, and assessment of the patient. I have evaluated the patient independently and agree with the plan of care documented by Dr. Arrieta. All diagnostic studies were reviewed and discussed. I confirm the diagnosis as documented by the Resident. I was present during the Medical Decision Making for this patient. The patient's plan of care was created between myself and the Resident and consistent with our discussion of the patient's case.
[2025-05-07 06:48] LABS: Lactic Acid, 3 HR 1.1 mMol/L (0.4-2.0)
--- NOTE | 2025-05-07 07:12 | PC.NURSE ---
Pt. here from home to room 17, pt. states he thinks he ate rotten chicken, pt. states he started vomiting, pt. states the pain brought him to the ER, pt. was sent home then returned because of the pain. Pt. sitting up in bed now tolerating the low intermittent suctioning to the right nare. Pt. resting with his eyes closed, spouse at bedside. Pt. states he had 2 stents placed about [address] Emery. Pt. states his sugar has been high pt. states he doesn't really control his diabetes with his food, pt. states he eats pretty much anything. Pt. denies any pain or vomiting at this time.
[2025-05-07] MEDS: RINGERS LACTATED 1000 ML 1,000 ML 75 ML IV (07:15)
[2025-05-07] MEDS: DOXYCYCLINE INJ 100 MG in SODIUM CHLORIDE 0.9% (POP) 100 ML IV (07:16)
--- NOTE | 2025-05-07 07:45 | ESHP_ITS ---
<Statement entered by Britta Nicholson MD - 05/08/25 06:57> 69 yr male with a history of Metastatic RCC, CAD s/p stenting 2 weeks ago who presents with 1 day of intractable abdominal pain. The pain started suddenly and was associated with nausea and vomiting. Patient had stable vitals, had diffuse abdominal tenderness on exam, and a CT scan done which demonstrated colonic malrotation and small bowel obstruction. Patient admitted on 05/[address] Nichols was consulted. NG tube was place and gastro graffin sereis were started. Cardiology Dr. Kilpatrick was also consulted as patient has just had stent placement about 2 weeks ago. Antiplatelets being held for possible surgery for SBO. Final recommendations for anti clotting is pending. Plan to resume Plavix if SBO clears and surgery not needed. NG tube on LIS and monitor BM. Ceftriaxone for pneumonia, blood sugar checks q6hr, SSI. Documentation for date of: 05/07/25 HPI History of Present Illness Chief complaint: Abdominal pain History of present illness: This is a 69 yom with a h/o metastatic RCC on nivolumab/ipilimumab, CAD s/p stenting x9 with two recent stents done 2 weeks ago in [place] with Dr. Emery, CHF, DM, HTN, TIA, Hypothyroidism, EL, who presents with abdominal pain. This pain started acutely yesterday around noon after he ate some chicken. The patient initially attributed the pain to food poisening and went to the ED, on 05/06, was given IVF, zosyn, and dilauded with improvement. He returned to the ED after his pain came back and worsened. His last bowel movement was on the morning of 05/06, prior to his symptoms starting. He reports nausea and some vomiting diffuse abdominal pain, but denies fever, chest pain, dysuria, urinary hesitency, or leg swelling. Medical History: See above. Of note, his RCC is being followed by [facility], he sees his oncologist cynthia for his chemotherapy treatment. He's had 3 years of infusions, his last one being last month and he is scheduled to have 2 more with the next one being this tuesday. He has known metastasis including a rectus mass that received radiation treatment. Surgical History: - Right nephrectomy. - Umbilical Hernia Social History: -Lives at home, denies tobacco or recreational drug use. Endorses drinking on special occasions. Drank 7 beverages last weekend. Family History [place] [facility] [place] -on arrival, patients vitals are as follows: Temp 98, HR 76, BP 156/82, RR 18, O2 sat 96% RA. - CT Chest Abdomen Pelvis was obtained and demonstrated colonic malrotation, dilated small bowel loops, small bowel obstruction, and multiple enhancing mass lesions in the rectus muscle, left kidney, and pancreas. -Labs were notable for lacate 2.5, glucose 171, corrected calcium 10.4, Beta OH buty 1.3 -NG Tube Placement to LIS, Zofran, Dilaudid, Zosyn, and Doxycycline were administered - General Surgeon Dr Magdalena barber Small Bowel Series, LR Mainatanence (H/O HF) - Admission team A was contacted. Review of Systems Review of Systems Systems Reviewed: All systems reviewed, normal except as documented Narrative Review of Systems: See HPI for ROS Exam Vital Signs Temp Pulse Resp BP Pulse Ox O2 Del Method 100.0 F 83 17 129/70 96 Room Air 05/07/25 07:10 05/07/25 07:10 05/07/25 07:10 05/07/25 07:10 05/07/25 07:10 05/07/25 07:10 Narrative Exam General: Patient appears uncomfortable, grimacing, but responsive. HEENT: No JVD noted. Mucosa dry. Pupils are equal and reactive to light bilaterally. Cardiovascular: Normal S1 and S2. Regular rate and rhythm. No murmur appreciated Respiratory: Clear to auscultation bilaterally without wheezes or crackles. Abdomen: Soft, diffusely tender but worse in the lower abdomen bilaterally without rebound or fluid wave. Old, well healed surgical scar adjacent to the umbilicus. Skin: Dry, no rashes or bruising Musculoskeletal: No gross injuries. Able to move all 4 extremities. Non- edematous lower extremities. Psych: Normal affect and mood Results: Labs 05/08/25 05:00 05/08/25 05:00 Labs: Short CBC 05/07/25 Range/Units 02:40 WBC 7.4 (3.8-10.6) Thou/mm3 Hgb 15.1 (13.5-16.0) g/dL Hct 43.6 (41.0-53.0) % Plt Count 165 (140-440) Thou/mm3 BMP 05/07/25 02:40 Sodium 141 Potassium 4.2 Chloride 104 Carbon Dioxide 22.8 BUN 23 Creatinine 1.2 Glucose 171 H Calcium 10.4 Liver Function 05/07/25 Range/Units 02:40 Total Bilirubin 1.1 (0.3-1.2) mg/dL Direct Bilirubin 0.3 (0.0-0.3) mg/dL AST 27 (0-34) U/L ALT 23 (10-49) U/L Alkaline Phosphatase 110 (46-116) U/L Albumin 4.4 (3.4-4.8) gm/dL ABG Interpretation ABG results: 05/07/25 02:40 VBG pH 7.40 VBG pCO2 40 VBG pO2 36 VBG Base Excess 0 Quality Measures Quality Measures none Advance care planning discussed with:: patient and spouse Medications Home Medications and Allergies Home Medications ?Medication ?Instructions ?Recorded ?Confirmed ?Type aspirin 81 mg chewable tablet 81 mg PO QDAY 11/19/20 0 05/07/25 History atorvastatin 80 mg tablet 80 mg PO QDAY 11/19/2005/07 History carvedilol 6.25 mg tablet (Coreg) 6.25 mg PO DAILY PRN Hypertension 08/12/22 05/07/25 History clopidogrel 75 mg tablet 75 mg PO QDAY 08/12/2205/07 History ezetimibe 10 mg tablet 10 mg PO QDAY 08/12/2205/07 History furosemide 20 mg tablet 20 mg PO QDAY 12/31/2205/07 History sacubitril 49 mg-valsartan 51 mg 1 tab PO BID 12/31/22 05/07/25 History tablet (Entresto) tamsulosin 0.4 mg capsule 0.4 mg PO QHS 04/25/2305/07 History spironolactone 25 mg tablet 25 mg PO QDAY 06/12/2405/23 History metformin 1,000 mg tablet 1,000 mg PO BID 06/18/2405/23 History metoprolol succinate 100 mg 100 mg PO DAILY 06/18/24 0 05/07/25 History tablet,extended release 24 hr hydrocortisone 5 mg tablet 5 mg PO BID 06/19/24 History nitroglycerin 0.4 mg sublingual 0.4 mg buccal PRN PRN Chest Pain 06/19/24 05/07/25 History tablet Allergies Allergy/AdvReac Type Severity Reaction Status Date / Time No Known Allergies Allergy Verified 05/07/25 02:04 Visit Medications Dextrose (Dextrose 50%-Water Inj 50 Ml Syringe) 25 ml IV Q15MIN PRN PRN Reason: BG 50-70 responsive npo pt Stop: 06/06/25 06:19 Dextrose (Dextrose 50%-Water Inj 50 Ml Syringe) 50 ml IV Q15MIN PRN PRN Reason: BG <50 OR BG <70 & pt unresponsive Stop: 06/06/25 06:19 Glucagon (Glucagon Inj 1 Mg Vial) 1 mg IM Q15MIN PRN PRN Reason: BG <70, and no IV access Lactated Ringer's (Lactated Ringers) 1,000 mls @ 75 mls/hr IV .[id number] [facility] Stop: 05/07/25 20:27 Last Admin: 05/07/25 07:15 Dose: 75 mls/hr Insulin Human Lispro (Insulin Lispro (Admelog) 1 Unit/0.01 Ml Unit) 0 unit SC Q6HR [facility]; Protocol Stop: 06/06/25 06:29 Last Admin: 05/07/25 06:37 Dose: 1 unit Discontinued Medications Famotidine (Famotidine Inj 10 Mg/Ml Vial 2 Ml) 20 mg IVP X1 ONE Stop: 05/07/25 02:09 Last Admin: 05/07/25 02:45 Dose: 20 mg Hydromorphone HCl (Hydromorphone Inj 2 Mg/Ml Vial) 2 mg IVP X1 ONE Stop: 05/07/25 02:09 Last Admin: 05/07/25 02:45 Dose: 2 mg Hydromorphone HCl (Hydromorphone Inj 2 Mg/Ml Vial) 1 mg IVP X1 ONE Stop: 05/07/25 06:18 Last Admin: 05/07/25 06:34 Dose: 1 mg Sodium Chloride (Ns) 1,000 mls @ 999 mls/hr IV .Q1H1M ONE Stop: 05/07/25 03:08 Last Infusion: 05/07/25 03:44 Dose: Infused Piperacillin Sod/Tazobactam (Sod 4.5 gm/ Sodium Chloride) 100 mls @ 200 mls/hr IV X1 ONE Stop: 05/07/25 06:48 Last Infusion: 05/07/25 07:08 Dose: Infused Doxycycline Hyclate 100 mg/ (Sodium Chloride) 100 mls @ 100 mls/hr IV X1 ONE Stop: 05/07/25 07:17 Last Admin: 05/07/25 07:16 Dose: 100 mls/hr Ondansetron HCl (Ondansetron Inj 2 Mg/Ml Inj 2 Ml) 4 mg IVP X1 ONE; Protocol Stop: 05/07/25 02:09 Last Admin: 05/07/25 02:45 Dose: 4 mg Ondansetron HCl (Ondansetron Inj 2 Mg/Ml Inj 2 Ml) 4 mg IVP X1 ONE; Protocol Stop: 05/07/25 06:19 Last Admin: 05/07/25 06:34 Dose: 4 mg Pantoprazole Sodium (Pantoprazole Inj 40 Mg Vial) 40 mg IVP X1 ONE Stop: 05/07/25 02:09 Last Admin: 05/07/25 02:45 Dose: 40 mg Assessment & Plan Assessment 69 yom with a history of Metastatic RCC, CAD s/p stenting 2 weeks ago who presents with 1 day of intractable abdominal pain. The pain started suddenly and was associated with nausea and vomiting. Patient had stable vitals, had diffuse abdominal tenderness on exam, and a CT scan done which demonstrated colonic malrotation and small bowel obstruction. Patient admitted on 05/06 for SBO. #Small Bowel Obstruction #Intractable Abdominal Pain 2/2 to above vs metastatic cancer - NG tube in place, clamped for duration of gastrograffin study. - General Surgery consulted, appreciate recommendations - On dilauded q2 for pain control, will consider [employer]. #CAD #TIA #HTN - Recent stenting done 2 weeks ago in [place] with Dr. Emery - On aspirin/plavix at baseline. - Appreciate cardiology recommendations, as general surgery team would like DAPT held if surgery is indicated. #Aspiration Pneumonia - noted on CXR and CT abdomen and pelvis - ceftriaxone started 05/06- #DM - On metformin and empagliflozen at baseline. Decently controlled with A1c of 6.4. Attending Provider Attestation/Addendum I have discussed and was present for the essential components of the history, physical examination, diagnosis, and treatment plan with the resident. I agree with the patient's care as documented by the resident and amended herein by me. Mack Corado DO. Although this document has been carefully reviewed, there may still be some phonetic and other typographical errors. These errors are purely grammatical due to imperfections in the software program and should not be construed in any way to compromise the substance of the patient's medical care during this visit.
--- NOTE | 2025-05-07 08:01 | XR_ITS ---
Examination: Small bowel series AP abdomen 3 views Date and time: May 07, 2025 0925 hours INDICATIONS: Abdominal pain and distention this week TECHNIQUE AND FINDINGS: Patient received 120 cc Gastrografin through the orogastric tube Immediate, 45 minute, 1.5 hour abdomen films obtained Contrast in the stomach and mildly distended proximal small bowel loops IMPRESSION: Contrast in mildly distended small bowel loops Recommend follow-up abdomen films 12 noon, 2:00 PM, 4:00 PM
--- NOTE | 2025-05-07 11:23 | PD.SURCONS ---
HPI Consult details Consult date: 05/07/25 Reason for consultation narrative: Small bowel obstruction History of present illness: 69-year-old male with multiple medical comorbidities including diabetes, hypertension, multiple MIs, CAD with multiple stent placement recently 2 weeks ago at [facility] on Plavix, renal cell carcinoma status post right nephrectomy, was found to have left renal cancer with abdominal wall metastasis presented with abdominal pain with nausea and vomiting. His symptoms started yesterday with abdominal pain and distention, nausea and vomiting. His last bowel movement was yesterday. He has had colonoscopy about 4 years ago that revealed polyp and diverticular disease. CT scan revealed dilated loops of small bowel concerning for small bowel obstruction. An NG tube was placed and patient was admitted for further management. Review of Systems Constitutional Constitutional: Denies chills and Denies fever(s) Cardiovascular Cardiovascular: Denies chest pain Respiratory Respiratory: Denies cough Gastrointestinal Gastrointestinal: Reports abdominal pain, Reports nausea and Reports vomiting Genitourinary Genitourinary: Denies difficulty urinating Hematologic/Lymphatic Hematologic/Lymphatic: Denies easy bleeding and Reports easy bruising Past Medical History Surgical History OTHER SURGICAL HX: Robotic right nephrectomy, umbilical hernia repair with mesh, cardiac cath with multiple stent placements Meds Home Medications and Allergies Home Medications ?Medication ?Instructions ?Recorded ?Confirmed ?Type aspirin 81 mg chewable tablet 81 mg PO QDAY 11/19/20 09/06/24 History atorvastatin 80 mg tablet 80 mg PO QDAY 11/19/20 09/06/24 History carvedilol 6.25 mg tablet (Coreg) 6.25 mg PO DAILY PRN Hypertension 08/12/22 09/06/24 History clopidogrel 75 mg tablet 75 mg PO QDAY 08/12/22 09/06/24 History ezetimibe 10 mg tablet 10 mg PO QDAY 08/12/22 09/06/24 History furosemide 20 mg tablet 20 mg PO QDAY 12/31/22 09/06/24 History sacubitril 49 mg-valsartan 51 mg 1 tab PO BID 12/31/22 09/06/24 History tablet (Entresto) tamsulosin 0.4 mg capsule 0.4 mg PO QHS 04/25/23 09/06/24 History spironolactone 25 mg tablet 25 mg PO QDAY 06/12/24 09/06/24 History metformin 1,000 mg tablet 1,000 mg PO BID 10/21/24 01/09/25 History metoprolol succinate 100 mg 100 mg PO DAILY 06/18/24 09/06/24 History tablet,extended release 24 hr hydrocortisone 5 mg tablet 5 mg PO BID 06/19/24 09/06/24 History nitroglycerin 0.4 mg sublingual 0.4 mg buccal PRN PRN Chest Pain 06/19/24 09/06/24 History tablet Allergies Allergy/AdvReac Type Severity Reaction Status Date / Time No Known Allergies Allergy Verified 05/07/25 02:04 Exam Vital Signs Temp Pulse Resp BP Pulse Ox O2 Del Method 98.5 F 70 17 159/87 H 95 Room Air 05/07/25 08:58 05/07/25 08:58 05/07/25 08:58 05/07/25 08:58 05/07/25 08:58 05/07/25 08:58 Constitutional Constitutional: moderate distress Routine Abdominal Exam Comments: Abdomen is soft but distended. He has tenderness to palpation, no rebound tenderness or peritonitis. Hard mass palpated on left mid abdomen Results Results: Laboratory Laboratory results: results reviewed Results: Imaging CT scan - abdomen: report reviewed and image reviewed CT scan - pelvis: report reviewed and image reviewed Assessment & Plan Additional Assessment Additional comments: Small bowel obstruction Plan Continue NG tube decompression. Obtain small bowel series. Hold Plavix, may start heparin or Lovenox
--- NOTE | 2025-05-07 12:00 | XR_ITS ---
Examination: Abdomen AP single view Technique: AP portable supine abdomen, single view Exam date and time: May 07, 2025 1204 hours INDICATIONS: Abdominal distention this week, 3 hour delayed film post small bowel series today. FINDINGS: Contrast in small bowel loops in the right abdomen IMPRESSION: Recommend follow-up films 2:00 PM, 4:00 PM, 6:00 PM
--- NOTE | 2025-05-07 12:53 | PD.RESCONSUL ---
HPI Data of Consult Requesting Physician: Regulo Corado DO Admitting Provider: Regulo Corado DO Attending Provider: Regulo Corado DO Primary Care Provider: Rick Iraheta MD Consult Narrative Reason for consult: Recent stent placement on Plavix and aspirin anticipated to go for surgery History of present illness: HPI: A 69-year-old male patient with past medical history of coronary artery disease status post 9 stents to 3 different angiograph, most recent 1 was 2 weeks ago in [place] by Dr. Emery, CHF, diabetes mellitus, hypertension, history of TIA, history of obstructive sleep apnea, history of hypothyroidism, who came to the ED due to acute onset colicky abdominal pain, generalized associated with multiple episodes of vomiting and severe retching. As per his she reported that the patient started to have acute abdominal pain on May 06, 2025, patient was assessed and he was given some pain medication and was discharged home. However the next day patient continued to have worsening abdominal pain and vomiting. Pain is colicky in nature with no radiation, the vomiting was food content with no blood. She reported that he had a bowel movement on the day of presentation, she does not know the amount or the color of the stool at that time. She denied any fever or chills however she mentioned that he has a history of renal cell carcinoma status post nephrectomy and he is on nivolumab/ipilimumab monthly due to his diffuse intra-abdominal and abdominal wall metastasis. At the ED patient was found to have blood pressure of 156/82, pulse rate of 18, saturation of 96 on room air, temperature of 98, pulse rate of 76, CT abdomen and pelvis showed colonic malrotation, dilated small bowel loops, and radiological picture of small bowel obstruction, he was also found to have multiple mass on his abdominal wall, left kidney and pancreas. Patient general surgery was consulted they recommended to keep the patient n.p.o. and put the patient in low intermittent suction and recommended to start the patient on GI series to rule out SBO. However, because the patient has recently 2 stents placed 2 weeks ago cardiology team was consulted as the patient will not be able to take aspirin or Plavix as requested by the general surgery. Regarding his cardiac history, patient's reported that the patient has his first heart attack in 2015 in which he had his first angiograph and stent placement that was done in [place] by Dr. Harper, after that the patient was follow-up with Dr. Harper when he started to develop some symptoms of shortness of breath and chest pressure another angiogram was done and was found to have multivessel stenosis in which multi stent were placed. And then recently patient was following up with Dr. Emery in [place] and which he recommended another angiogram and he placed a stent as per the . Patient was discharged on aspirin and Plavix since then. His also reported that he also has history of CHF and being followed by Dr. Emery. She denied any history of upper or lower GI bleed and denied any history of intermittent claudication. cc:: cc: Regulo Corado, Review of Systems Review of Systems ROS Unobtainable: unobtainable due to medical condition (Patient was in pain and was given multiple doses of Dilaudid ) Exam Vital Signs Temp Pulse Resp BP Pulse Ox O2 Del Method 98.5 F 88 17 159/87 H 95 Room Air 05/07/25 08:58 05/07/25 11:26 05/07/25 08:58 05/07/25 08:58 05/07/25 08:58 05/07/25 08:58 Narrative Exam GEN: Sleepy, however able to answer yes or no questions HEENT: NC/AC, PERRLA, oral mucosa dry, neck supple CVS: RRR, S1-S2 present, no murmurs appreciated RESP:No signs of respiratory depression, CTAB GI: soft, mildly distended, mild tenderness, increased bowel MSK: able to move all 4 limbs, no lower extremity edema SKIN: warm and dry [employer]: Unable to assess due to his mental status after he was given Dilaudid. Results Labs 05/08/25 05:00 05/08/25 05:00 Labs: Short CBC 05/07/25 Range/Units 02:40 WBC 7.4 (3.8-10.6) Thou/mm3 Hgb 15.1 (13.5-16.0) g/dL Hct 43.6 (41.0-53.0) % Plt Count 165 (140-440) Thou/mm3 BMP 05/07/25 02:40 Sodium 141 Potassium 4.2 Chloride 104 Carbon Dioxide 22.8 BUN 23 Creatinine 1.2 Glucose 171 H Calcium 10.4 Liver Function 05/07/25 Range/Units 02:40 Total Bilirubin 1.1 (0.3-1.2) mg/dL Direct Bilirubin 0.3 (0.0-0.3) mg/dL AST 27 (0-34) U/L ALT 23 (10-49) U/L Alkaline Phosphatase 110 (46-116) U/L Albumin 4.4 (3.4-4.8) gm/dL ABG Interpretation ABG results: 05/07/25 02:40 VBG pH 7.40 VBG pCO2 40 VBG pO2 36 VBG Base Excess 0 Quality Measures Quality Measures none Advance care planning discussed with:: patient Medications Home Medications and Allergies Home Medications ?Medication ?Instructions ?Recorded ?Confirmed ?Type aspirin 81 mg chewable tablet 81 mg PO QDAY 11/19/20 05/07/25 History atorvastatin 80 mg tablet 80 mg PO QDAY 11/19/20 05/07/25 History carvedilol 6.25 mg tablet (Coreg) 6.25 mg PO DAILY PRN Hypertension 08/12/22 05/07/25 History clopidogrel 75 mg tablet 75 mg PO QDAY 08/12/22 05/07/25 History ezetimibe 10 mg tablet 10 mg PO QDAY 08/12/22 05/07/25 History furosemide 20 mg tablet 20 mg PO QDAY 12/31/22 05/07/25 History sacubitril 49 mg-valsartan 51 mg 1 tab PO BID 12/31/22 05/07/25 History tablet (Entresto) tamsulosin 0.4 mg capsule 0.4 mg PO QHS 04/25/23 05/07/25 History spironolactone 25 mg tablet 25 mg PO QDAY 06/12/24 05/07/25 History metformin 1,000 mg tablet 1,000 mg PO BID 06/18/24 05/07/25 History metoprolol succinate 100 mg 100 mg PO DAILY 06/18/24 05/07/25 History tablet,extended release 24 hr hydrocortisone 5 mg tablet 5 mg PO BID 06/19/24 05/07/25 History nitroglycerin 0.4 mg sublingual 0.4 mg buccal PRN PRN Chest Pain 06/19/24 05/07/25 History tablet Allergies Allergy/AdvReac Type Severity Reaction Status Date / Time No Known Allergies Allergy Verified 05/07/25 02:04 Visit Medications Acetaminophen (Acetaminophen 325 Mg Tablet) 650 mg PO Q6H PRN PRN Reason: Fever >100.4 or Pain 1-3 Stop: 06/06/25 07:55 Dextrose (Dextrose 50%-Water Inj 50 Ml Syringe) 25 ml IV Q15MIN PRN PRN Reason: BG 50-70 responsive npo pt Stop: 06/06/25 06:19 Dextrose (Dextrose 50%-Water Inj 50 Ml Syringe) 50 ml IV Q15MIN PRN PRN Reason: BG <50 OR BG <70 & pt unresponsive Stop: 06/06/25 06:19 Glucagon (Glucagon Inj 1 Mg Vial) 1 mg IM Q15MIN PRN PRN Reason: BG <70, and no IV access Hydromorphone HCl (Hydromorphone Inj 2 Mg/Ml Vial) 1 mg IVP Q2HR [facility] Stop: 05/12/25 11:14 Last Admin: 05/07/25 11:16 Dose: 1 mg Lactated Ringer's (Lactated Ringers) 1,000 mls @ 75 mls/hr IV .[id number] [facility] Stop: 05/07/25 20:27 Last Admin: 05/07/25 07:15 Dose: 75 mls/hr Piperacillin/Tazobactam/Dextrose (Zosyn) 3.375 gm in 50 mls @ 12.5 mls/hr IV Q8HR [facility] Stop: 05/14/25 13:59 Insulin Human Lispro (Insulin Lispro (Admelog) 1 Unit/0.01 Ml Unit) 0 unit SC Q6HR [facility]; Protocol Stop: 06/06/25 06:29 Last Admin: 05/07/25 12:26 Dose: Not Given Discontinued Medications Famotidine (Famotidine Inj 10 Mg/Ml Vial 2 Ml) 20 mg IVP X1 ONE Stop: 05/07/25 02:09 Last Admin: 05/07/25 02:45 Dose: 20 mg Hydromorphone HCl (Hydromorphone Inj 2 Mg/Ml Vial) 2 mg IVP X1 ONE Stop: 05/07/25 02:09 Last Admin: 05/07/25 02:45 Dose: 2 mg Hydromorphone HCl (Hydromorphone Inj 2 Mg/Ml Vial) 1 mg IVP X1 ONE Stop: 05/07/25 06:18 Last Admin: 05/07/25 06:34 Dose: 1 mg Hydromorphone HCl (Hydromorphone Inj 2 Mg/Ml Vial) 1 mg IVP Q4HR PRN PRN Reason: PAIN SCALE 4-10(Mod-Sev Stop: 05/12/25 07:55 Last Admin: 05/07/25 08:52 Dose: 1 mg Sodium Chloride (Ns) 1,000 mls @ 999 mls/hr IV .Q1H1M ONE Stop: 05/07/25 03:08 Last Infusion: 05/07/25 03:44 Dose: Infused Piperacillin Sod/Tazobactam (Sod 4.5 gm/ Sodium Chloride) 100 mls @ 200 mls/hr IV X1 ONE Stop: 05/07/25 06:48 Last Infusion: 05/07/25 07:08 Dose: Infused Doxycycline Hyclate 100 mg/ (Sodium Chloride) 100 mls @ 100 mls/hr IV X1 ONE Stop: 05/07/25 07:17 Last Infusion: 05/07/25 08:16 Dose: Infused Ondansetron HCl (Ondansetron Inj 2 Mg/Ml Inj 2 Ml) 4 mg IVP X1 ONE; Protocol Stop: 05/07/25 02:09 Last Admin: 05/07/25 02:45 Dose: 4 mg Ondansetron HCl (Ondansetron Inj 2 Mg/Ml Inj 2 Ml) 4 mg IVP X1 ONE; Protocol Stop: 05/07/25 06:19 Last Admin: 05/07/25 06:34 Dose: 4 mg Pantoprazole Sodium (Pantoprazole Inj 40 Mg Vial) 40 mg IVP X1 ONE Stop: 05/07/25 02:09 Last Admin: 05/07/25 02:45 Dose: 40 mg Assessment & Plan Plan Summary: A 69-year-old male patient with past medical history of coronary artery disease status post 9 stents to 3 different angiograph, most recent was 2 weeks ago in [place] by Dr. Emery, CHF, diabetes mellitus, hypertension, history of TIA, history of obstructive sleep apnea, history of hypothyroidism, who came to the ED due to acute onset colicky abdominal pain. Patient was found to have SBO, he is n.p.o., patient has recent history of 2 stent placement 2 weeks ago and was on aspirin and Plavix. It was held by general surgeon. Resumed, cardiology team was consulted. #Extensive history of coronary artery disease status post multiple stents placement #History of CHF patient's reported that the patient has his first heart attack in 2015 in which he had his first angiograph and stent placement that was done in [place] by Dr. Harper, after that the patient was follow-up with Dr. Harper when he started to develop some symptoms of shortness of breath and chest pressure another angiogram was done and was found to have multivessel stenosis in which multi stent were placed. And then recently patient was following up with Dr. Emery in [place] and which he recommended another angiogram and he placed a stent as per the . Patient was discharged on aspirin and Plavix since then. His also reported that he also has history of CHF and being followed by Dr. Emery. She denied any history of upper or lower GI bleed and denied any history of intermittent claudication. There is no acute on patient chart, serum creatinine is 1.2, troponin is normal, potassium is 4.2, magnesium 2.2, BNP was not performed Plan ?Will review the patient chart in [facility] to determine the need for antiplatelets depending on the stent ? Cangrelor IV drip would be a appropriate to be used in the settings however it was not available in our facility ? Keep potassium and magnesium above 4 and 2 respectively within normal limits ? Strict in and out. #Acute hypoxic respiratory failure most likely secondary to pneumonia #Hospital-acquired pneumonia versus community-acquired pneumonia #Renal cell carcinoma status post nephrectomy #Intra-abdominal metastasis #History of TIA #History of hypothyroidism #History of diabetes mellitus Plan: - Follow the primary team recommendations Thank you for your consultation, please do not hesitate to reach out if you have any question or concern - Patient's plan and care discussed with my attending, Dr. Leonides Espinoza MD Internal Medicine PGY-3 Attending Provider Attestation/Addendum I have personally seen and examined the patient separately on the above date of service and discussed the plan of care with the resident. I reviewed the resident Dr. Espinoza consultation progress note and agree with the resident findings and plan in the note above and have also edited the documentation to reflect my findings and plan. Patient with a history of significant CAD with multiple stents up to 9 stents as per the patient. Initial stents were placed by Dr. Harper at [place] [facility] almost 15 to 20 years ago. Then later patient did develop heart attack and was admitted at [facility] after which she is continue to follow Dr. Emery. He has last seen his manufacturers representative Dr. Emery in March 2025 and he did have a cardiac catheterization which did show severe stenosis in LAD and as well as moderate to severe stenosis in RCA. Patient had 2 stents placed on 04/23/2025 which includes a 3.0 x 12 mm Synergy AUSTEN stent in the proximal LAD as well as the mid RCA. No patient admitted for small bowel obstruction and surgical team Dr. Nichols was consulted and planning for possible surgery. Right now patient is on conservative treatment with NG tube with suction. I did discuss with Dr. Nichols and the plan is to perform a GI small bowel series tomorrow and if patient is improving then plan is to continue medical management or will take the patient for surgery. Ideally patient should be on dual antiplatelet agents at least for a month before stopping the Plavix. Last dose of Plavix and aspirin appears to be more than 24 hours ago. Ideally again patient should be on IV cangrelor drip but it is unavailable in this institution. Will give the patient aspirin rectally for now. Can hold Plavix for 1 day. Recommend to start heparin drip after bolus as per [facility] protocol for now. Patient echocardiogram from today reviewed and showed normal LV size and function with an EF of around 60%, normal RV size and function and has been revascularized recently 2 weeks ago as noted above. Patient is mildly elevated but acceptable cardiac risk for the surgery if the plan is for surgery tomorrow morning. Recommend to continue aspirin perioperatively and heparin drip until 2 to 3 hours before the surgery. Recommend to resume the Plavix immediately postoperatively once hemostasis is achieved. Will continue to closely follow-up with the patient. Leonides Kilpatrick M.D. Interventional Cardiology
--- NOTE | 2025-05-07 14:00 | XR_ITS ---
Examination: Abdomen AP single view Technique: AP portable supine abdomen, single view Exam date and time: May 07, 2025, 1359 hours INDICATIONS: Abdominal distention this week, 5 hour delayed film post small bowel series. FINDINGS: Contrast in distended proximal small bowel loops IMPRESSION: Contrast in distended proximal small bowel loops, multiple additional delayed films will be obtained
[2025-05-07] MEDS: PIPER/TAZO 3.375 GM PREMIX 3.375 GM/50 ML BAG IV ×2 (14:12→22:16)
--- NOTE | 2025-05-07 14:20 | XR_ITS ---
Examination: CT abdomen with intravenous contrast CT pelvis with intravenous contrast 2-D coronal reconstructions 2-D sagittal reconstructions Date and time of exam:May 07, 2025 1551 hours INDICATIONS: Abdominal and pelvic pain today as well as chest pain, multiple solid left renal lesions, 3 cm enhancing mass in the pancreatic head, enhancing soft tissue mass in the left rectus muscle on CT study this morning. CTDI: vol (mGy) 12.3 DLP: (mGycm) 847 Technique: Multiple axial sections of the abdomen and pelvis have been obtained. 64 slice high-resolution scanner used. 3 mm axial sections have been obtained, post intravenous injection 60 cc [id number] 2-D sagittal, coronal reconstructions obtained. Low dose protocols were performed. One or more of the following dose reduction techniques were used; automated exposure control, adjustment of the mA and/or KV according to patient size, use of iterative reconstruction technique. Findings: Atelectasis versus pneumonia at the right lung base Mild free fluid subcapsular to the liver measuring up to 12 mm Distended gallbladder No focal liver lesions Spleen is not enlarged Faint enhancement in mass body the pancreas, better demonstrated on the prior study Left adrenal mass 22 mm again noted Again identified 30 mm anterior, 33 mm medial, 14 mm inferior, 12 mm lateral left renal masses No renal vein or inferior vena cava tumor thrombus Absent right kidney Multiple contrast distended small bowel loops to ileal level Normal appendix Enhancing mass again noted in the left rectus muscle, on this study measuring 4 cm Mild prostatomegaly Contracted urinary bladder Prominent osteopenia IMPRESSION: Atelectasis versus versus pneumonia right base Mild free fluid subcapsular to the liver. Small pancreatic mass again noted Multiple left renal tumor is again identified Enhancing tumor mass in the left rectus muscle again noted, currently measuring 4 cm Small bowel obstruction pattern, recommend follow-up abdomen films at 6:00 PM, 8:00 PM, 10:00 PM to assess whether contrast passes into the colon
--- NOTE | 2025-05-07 16:00 | XR_ITS ---
Examination: Abdomen AP single view Technique: AP portable supine abdomen, single view Exam date and time: May 07, 2025 1603 hours INDICATIONS: Abdominal distention today, 7 hour delayed film post small bowel series. FINDINGS: Contrast remains in distended proximal small bowel loops in the right abdomen Abundant contrast is present in the stomach IMPRESSION: Distended proximal small bowel loops, recommend follow-up films 6:00 PM, 8:00 PM, 10:00 PM
[2025-05-07] MEDS: HYDROmorphone 1 MG/ML PCA SYRINGE 30ML PCA (17:25)
--- NOTE | 2025-05-07 18:00 | XR_ITS ---
Examination: Abdomen AP single view Technique: AP portable supine abdomen, single view Exam date and time: May 07, 2025, 1809 hrs. Indications: Abdominal pain and distention this week, 9 hours delayed film post small bowel series today. Findings: Much of the contrast is in the colon on the current study Impression: Negative for small bowel obstruction No further films are needed
--- NOTE | 2025-05-07 19:33 | PC.NURSE ---
Pt got up to the toilet, had a small BM.
--- NOTE | 2025-05-07 20:12 | PC.NURSE ---
MD Kilpatrick came and seen the pts.
--- NOTE | 2025-05-07 21:21 | PC.NURSE ---
MD Kilpatrick called to give pt aspirin per rectum and to start pt on Heparin drip per [facility] protocol, will order PTT Stat.
[2025-05-07 22:26] LABS: Basophils # (Auto) 0.0 Thou/mm3 (0.0-0.2); Basophils % (Auto) 0 % (0-2.5); Eosinophils # (Auto) 0.1 Thou/mm3 (0.0-0.5); Eosinophils % (Auto) 2 % (0-10); Hematocrit 44.0 % (41.0-53.0); Hemoglobin 14.7 g/dL (13.5-16.0); Immature Granulocytes Auto 0.01 Thou/mm3 (0.00-0.00); Lymphocytes # (Auto) 0.7 Thou/mm3 (1.0-4.8); Lymphocytes % (Auto) 12 % (10-50); Mean Corpuscular HGB Conc 33.4 g/dl (31.0-37.0); Mean Corpuscular Hemoglobin 28.7 pg (25.0-35.0); Mean Corpuscular Volume 86 fL (80-100); Monocytes # (Auto) 0.4 Thou/mm3 (0.0-0.8); Monocytes % (Auto) 7 % (0-12); Neutrophils # (Auto) 4.6 Thou/mm3 (1.8-7.7); Neutrophils % (Auto) 79 % (37-80); Nucleated Red Blood Cell # 0.00 Thou/mm3 (0.00-0.00); Nucleated Red Blood Cell % 0 /100 WBC (0); Platelet Count 166 Thou/mm3 (140-440); RDW Standard Deviation 43.4 fL (35.1-43.9); Red Blood Count 5.13 Miln/mm3 (4.50-5.90); White Blood Count 5.8 Thou/mm3 (3.8-10.6)
[2025-05-07 22:40] LABS: INR 1.1 (0.9-1.3); Partial Thromboplastin Time 25.9 Seconds (22.0-36.0); Prothrombin Time 11.7 Seconds (9.0-12.2)
[2025-05-07] MEDS: ASPIRIN 300 MG SUPP PR (23:00)
[2025-05-07] MEDS: HEPARIN SOD INJ 5000 UNIT/ML VIAL 4000 UNIT IV (23:10)
[2025-05-07] MEDS: Heparin/D5w 25K 250 ML Ivpb 25,000 UNIT/250 ML BAG 9.99 UNIT IV (23:11)
[2025-05-08] VITALS (7 sets, daily range): BP systolic 111–131; BP diastolic 64–82; PULSE 58–79; RESP 14–18; TEMP 36.1–36.6; O2SAT 97–98
[2025-05-08 01:35] LABS: Collection Type, Urine Clean Catch
[2025-05-08 01:46] LABS: Bilirubin,Urine Negative (Negative); Blood,Urine Negative (Negative); Clarity,Urine Clear (Clear/Hazy); Color,Urine Lt-Yellow (Lt Yel-Yel); Culture Indicated,Urine Not Indicated; Glucose, Urine 4+ (Negative); Ketones,Urine Negative (Negative); Leukocyte Esterase,Urine Negative (Negative); Nitrite,Urine Negative (Negative); PH,Urine 5.5 (5.0-7.0); Protein,Urine Trace (Neg - Trace); RBC,Urine 2 /hpf (0-3); Squamous Epithelial Cell,Urine 1 /hpf (0-5); Urobilinogen,Urine Negative mg/dL (0.0-1.0); WBC,Urine 1 /hpf (0-5)
[2025-05-08 01:48] LABS: Specific Gravity,Urine 1.025 (1.001-1.035)
--- NOTE | 2025-05-08 02:47 | PC.NURSE ---
MD Cason made aware regarding small bowel series result,pt has several BM tonight diarrhea, per MD o still keep pt NPO and keep the NG tube clamped as long as no nausea and vomiting.
[2025-05-08] MEDS: PIPER/TAZO 3.375 GM PREMIX 3.375 GM/50 ML BAG IV ×2 (05:05→13:50)
[2025-05-08 05:46] LABS: Basophils # (Auto) 0.0 Thou/mm3 (0.0-0.2); Basophils % (Auto) 0 % (0-2.5); Eosinophils # (Auto) 0.2 Thou/mm3 (0.0-0.5); Eosinophils % (Auto) 3 % (0-10); Hematocrit 40.5 % (41.0-53.0); Hemoglobin 13.4 g/dL (13.5-16.0); Immature Granulocytes Auto 0.01 Thou/mm3 (0.00-0.00); Lymphocytes # (Auto) 0.8 Thou/mm3 (1.0-4.8); Lymphocytes % (Auto) 18 % (10-50); Mean Corpuscular HGB Conc 33.1 g/dl (31.0-37.0); Mean Corpuscular Hemoglobin 29.0 pg (25.0-35.0); Mean Corpuscular Volume 88 fL (80-100); Monocytes # (Auto) 0.3 Thou/mm3 (0.0-0.8); Monocytes % (Auto) 7 % (0-12); Neutrophils # (Auto) 3.4 Thou/mm3 (1.8-7.7); Neutrophils % (Auto) 72 % (37-80); Nucleated Red Blood Cell # 0.00 Thou/mm3 (0.00-0.00); Nucleated Red Blood Cell % 0 /100 WBC (0); Platelet Count 162 Thou/mm3 (140-440); RDW Standard Deviation 45.5 fL (35.1-43.9); Red Blood Count 4.62 Miln/mm3 (4.50-5.90); White Blood Count 4.7 Thou/mm3 (3.8-10.6)
[2025-05-08 05:53] LABS: Partial Thromboplastin Time 40.7 Seconds (22.0-36.0)
[2025-05-08 06:07] LABS: Alanine Aminotransferase 21 U/L (10-49); Albumin, Serum 4.0 gm/dL (3.4-4.8); Albumin/Globulin Ratio 1.7 (1.2-2.2); Alkaline Phosphatase 88 U/L (46-116); Anion Gap 10 (7-16); Aspartate Amino Transferase 23 U/L (0-34); BUN/Creatinine Ratio 13 Ratio (12-20); Bilirubin,Total 0.7 mg/dL (0.3-1.2); Blood Urea Nitrogen 17 mg/dL (9-23); Calcium 9.9 mg/dL (8.3-10.6); Calcium (Corrected) 9.9 mg/dL (8.5-10.1); Carbon Dioxide 27.4 mMol/L (20.0-31.0); Chloride 109 mMol/L (98-107); Creatinine (Component) 1.3 mg/dL (0.6-1.3); Estimated Creatinine Clearance 63.6 mL/min (>60); Globulin 2.3 gm/dL (2.3-3.5); Glucose 135 mg/dL (74-106); Magnesium 2.5 mg/dL (1.6-2.6); Osmolality,Calculated 294 (275-295); Phosphorous 3.3 mg/dL (2.4-5.1); Potassium 4.3 mMol/L (3.4-5.1); Sodium 146 mMol/L (136-145); Total Protein 6.3 gm/dL (5.7-8.2); eGFR 60 See Note
[2025-05-08] MEDS: HEPARIN SOD INJ 5000 UNIT/ML VIAL 2000 UNIT IVP (06:17)
--- NOTE | 2025-05-08 08:52 | ECHO_ITS ---
Transthoracic Echo Report Ht (in): 69 Wt (lb): 222 Exam Location: Echo Lab Status: Inpatient [facility] Specials: Nilda Gallego Indications: Procedure Performed: BP: 131 / 79 HR: 63 MEASUREMENTS (Male / Female) Normal Values 2D ECHO LV Diastolic Diameter PLAX 5.4 cm 4.2 - 5.9 / 3.9 - 5.3 cm LV Systolic Diameter PLAX 4.3 cm IVS Diastolic Thickness 1.1 cm 0.6 - 1.0 / 0.6 - 0.9 cm LVPW Diastolic Thickness 1.0 cm 0.6 - 1.0 / 0.6 - 0.9 cm LV Relative Wall Thickness 0.4 LVOT Diameter 2.1 cm LA Volume Index 38.7 cm?/m? 16 - 28 cm?/m? Ascending Aorta Diameter 3.8 cm M-MODE AV Cusp Separation MM 1.6 cm DOPPLER AV Peak Velocity 135.0 cm/s AV Peak Gradient 7.3 mmHg AV Mean Gradient 4.0 mmHg AV Velocity Time Integral 27.8 cm LVOT Peak Velocity 97.3 cm/s LVOT Peak Gradient 3.8 mmHg LVOT Velocity Time Integral 21.0 cm LVOT Cardiac Index 2039.4 cm?/min?m? AV Area Cont Eq vti 2.6 cm? AV Area Cont Eq pk 2.5 cm? MV Area PHT 3.0 cm? Mitral E Point Velocity 54.0 cm/s Mitral A Point Velocity 76.7 cm/s Mitral E to A Ratio 0.7 LV E' Lateral Velocity 5.8 cm/s Mitral E to LV E' Lateral Ratio 9.4 TR Peak Velocity 172.0 cm/s TR Peak Gradient 11.8 mmHg PV Peak Velocity 111.0 cm/s PV Peak Gradient 4.9 mmHg FINDINGS Left Ventricle Normal left ventricular size, wall thickness, systolic function with no obvious regional wall motion abnormalities.There is grade I diastolic dysfunction of the left ventricle (impaired relaxation pattern). The ejection fraction is visually estimated at 50-55 %. Right Ventricle The right ventricle is normal in size and systolic function. Left Atrium The left atrium is normal by two-dimensional, color flow and Doppler imaging with no structural abnormalities, no thrombus formation present. Right Atrium The right atrium is normal by two-dimensional imaging, color flow and Doppler imaging with no structural abnormalities, no thrombus formation present. Atrial Septum The interatrial septum appears normal with no evidence of a shunt. Aorta Mildly dilated proximal ascending aorta measuring 3.8cm Mitral Valve Trace to mild mitral regurgitation. Mitral annular calcification. Aortic Valve Aortic valve sclerosis without stenosis Tricuspid Valve The tricuspid valve is normal by two-dimensional, color flow and Doppler interrogation. There is trace tricuspid valve regurgitation. Pulmonic Valve The pulmonic valve is not well visualized. There is no significant pulmonic valve regurgitation. Vessels The pulmonary artery appears normal. The inferior vena cava pulmonary and hepatic veins appear normal. Pericardium The pericardium is normal by two-dimensional imaging. There is no significant pericardial effusion. CONCLUSIONS Indication: HFrEF Normal left ventricular size and function. Approximate ejection fraction is 50- 55%. Grade I diastolic dysfunction. The right ventricle is normal in size and systolic function. Normal RVSP. Mildly dilated proximal ascending aorta measuring 3.8cm Mild MAC. Trace MR and TR. Mild Aortic valve sclerosis without stenosis. No pericardial effusion. Leonides Kilpatrick (Electronically Signed) Final Date: 08 May 2025 12:09
[2025-05-08] MEDS: ASPIRIN EC 81 MG TABEC PO (09:53)
[2025-05-08] MEDS: CLOPIDOGREL BISULFATE 75 MG TABLET PO (09:53)
--- NOTE | 2025-05-08 09:57 | PD.SURPROG ---
Documentation for date of: 05/08/25 Subjective Subjective Narrative: Pt is seen and examined. He is feeling much better and had multiple bowel movements. Exam Vital Signs Temp Pulse Resp BP Pulse Ox O2 Del Method 97.4 F 64 18 131/79 H 97 Room Air 05/08/25 07:45 05/08/25 07:45 05/08/25 07:45 05/08/25 07:45 05/08/25 07:45 05/08/25 07:45 Constitutional Constitutional: no acute distress Routine Abdominal Exam Abdominal: Present soft and normoactive bowel sounds; Absent tenderness or distended Assessment & Plan Assessment Additional comments: SBO resolving, SBS did not show evidence of bowel obstruction Plan DC NGT and start clear liquids. May advance diet as tolerated. May resume plavix and aspirin.
[2025-05-08] MEDS: CLOPIDOGREL BISULFATE 75 MG TABLET 225 MG PO (11:55)
[2025-05-08 12:40] LABS: Partial Thromboplastin Time 20.8 Seconds (22.0-36.0)
--- NOTE | 2025-05-08 12:57 | PC.SS ---
Patient Sam Engel is a 69 Year old male admitted for SBO. SS met with patient at bedside to discuss discharge plan. Patient reports he lives at home with his , Camilla Pham who he reports is his surrogate decision maker, [phone]. Patient reports he does not utilize any source of DME to assist with ambulation. Patient is able to complete ADL's independently. Choice of pharmacy is [facility] PCP is Rick Iraheta. At time of discharge patient will return home, will provide transportation. Next of kin: , Camilla Pham [phone] Discharge plan: Home
--- NOTE | 2025-05-08 15:07 | PC.SS ---
SS follow up note; Advancing diet, patient will discharge tomorrow if he is able tolerate diet.
--- NOTE | 2025-05-08 17:23 | ESPR_ITS ---
Documentation for date of: 05/08/25 Subjective Subjective Interval history: Today patient reported significant improvement of his symptoms. He had 3 bowel movement since last night. Review of the patient chart from [facility] March 2025 and he did have a cardiac catheterization which did show severe stenosis in LAD and as well as moderate to severe stenosis in RCA. Patient had 2 stents placed on 04/23/2025 which includes a 3.0 x 12 mm Synergy AUSTEN stent in the proximal LAD as well as the mid RCA. The general surgeon Dr. Nichols he recommended to DC the NG tube start clear liquid diet and he gave us the greenlight to start the patient on dual antiplatelets treatment. Exam Vital Signs Temp Pulse Resp BP Pulse Ox O2 Del Method 97.3 F 79 18 125/79 97 Room Air 05/08/25 11:45 05/08/25 16:00 05/08/25 11:45 05/08/25 11:45 05/08/25 11:45 05/08/25 11:45 Narrative Exam GEN: AO x 3,, lying in bed comfortably, NG tube in place HEENT: NC/AC, PERRLA, oral mucosa dry, neck supple CVS: RRR, S1-S2 present, no murmurs appreciated RESP:No signs of respiratory depression, CTAB GI: soft, mildly distended, mild tenderness, increased bowel MSK: able to move all 4 limbs, no lower extremity edema SKIN: warm and dry [employer]: Unable to assess due to his mental status after he was given Dilaudid. Objective Labs 05/08/25 05:00 05/08/25 05:00 Labs: Laboratory Results - last 24 hr 05/07/25 05/08/25 05/08/25 22:17 01:28 05:00 WBC 5.8 4.7 RBC 5.13 4.62 Hgb 14.7 13.4 L Hct 44.0 40.5 L MCV 86 88 MCH 28.7 29.0 MCHC 33.4 33.1 RDW Std Deviation 43.4 45.5 H Plt Count 166 162 Neut % (Auto) 79 72 Lymph % (Auto) 12 18 Hayes % (Auto) 7 7 Eos % (Auto) 2 3 Baso % (Auto) 0 0 Neut # (Auto) 4.6 3.4 Lymph # (Auto) 0.7 L 0.8 L Hayes # (Auto) 0.4 0.3 Eos # (Auto) 0.1 0.2 Baso # (Auto) 0.0 0.0 Immature Gran # (Auto) 0.01 H 0.01 H Absolute Nucleated RBC 0.00 0.00 Immature Gran % 0 0 Nucleated RBC % 0 0 PT 11.7 INR 1.1 APTT 25.9 40.7 H D Sodium 146 H Potassium 4.3 Chloride 109 H Carbon Dioxide 27.4 Anion Gap 10 BUN 17 Creatinine 1.3 Estim Creat Clear Calc 63.6 eGFR 60 BUN/Creatinine Ratio 13 Glucose 135 H Calculated Osmolality 294 Calcium 9.9 Corrected Calcium 9.9 Phosphorus 3.3 Magnesium 2.5 Total Bilirubin 0.7 AST 23 ALT 21 Alkaline Phosphatase 88 D Total Protein 6.3 Albumin 4.0 Globulin 2.3 Albumin/Globulin Ratio 1.7 Ur Collection Type Clean Catch Urine Color Lt-Yellow Urine Clarity Clear Urine pH 5.5 Ur Specific [place] 1.025 Urine Protein Trace Urine Glucose (UA) 4+ A Urine Ketones Negative Urine Blood Negative Urine Nitrite Negative Urine Bilirubin Negative Urine Urobilinogen (Auto) Negative Ur Leukocyte Esterase Negative Urine RBC 2 Urine WBC 1 Ur Squamous Epith Cells 1 Urine Bacteria None Ur Culture Indicated? Not Indicated 05/08/25 11:46 WBC RBC Hgb Hct MCV MCH MCHC RDW Std Deviation Plt Count Neut % (Auto) Lymph % (Auto) Hayes % (Auto) Eos % (Auto) Baso % (Auto) Neut # (Auto) Lymph # (Auto) Hayes # (Auto) Eos # (Auto) Baso # (Auto) Immature Gran # (Auto) Absolute Nucleated RBC Immature Gran % Nucleated RBC % PT INR APTT 20.8 L D Sodium Potassium Chloride Carbon Dioxide Anion Gap BUN Creatinine Estim Creat Clear Calc eGFR BUN/Creatinine Ratio Glucose Calculated Osmolality Calcium Corrected Calcium Phosphorus Magnesium Total Bilirubin AST ALT Alkaline Phosphatase Total Protein Albumin Globulin Albumin/Globulin Ratio Ur Collection Type Urine Color Urine Clarity Urine pH Ur Specific [place] Urine Protein Urine Glucose (UA) Urine Ketones Urine Blood Urine Nitrite Urine Bilirubin Urine Urobilinogen (Auto) Ur Leukocyte Esterase Urine RBC Urine WBC Ur Squamous Epith Cells Urine Bacteria Ur Culture Indicated? ABG Interpretation ABG results: 05/07/25 02:40 VBG pH 7.40 VBG pCO2 40 VBG pO2 36 VBG Base Excess 0 Quality Measures Quality Measures none Advance care planning discussed with:: patient Assessment & Plan Assessment Current Active Medications: Generic Name Dose Route Start Last Admin Trade Name Donna PRN Reason Stop Dose Admin Acetaminophen 650 mg 05/07/25 07:56 Acetaminophen 325 Mg Tablet PO 06/06/25 07:55 Q6H PRN Fever >100.4 or Pain 1-3 Protocol Aspirin 300 mg 05/07/25 14:15 05/07/25 16:49 Asp[address] 06/06/25 14:14 Not Given On Hold: 05/07/25 14:25 QDAY JANUSZ Aspirin 81 mg 05/08/25 09:00 05/08/25 09:53 Aspirin Ec 81 Mg Tabec PO 06/07/25 08:59 81 mg QDAY JANUSZ Administration Clopidogrel Bisulfate 75 mg 05/08/25 09:00 05/08/25 09:53 Clopidogrel Bisulfate 75 Mg Tablet PO 06/07/25 08:59 75 mg QDAY JANUSZ Administration Dextrose 25 ml 05/07/25 06:20 Dextrose 50%-Water Inj 50 Ml Syringe IV 06/06/25 06:19 Q15MIN PRN BG 50-70 responsive npo pt Dextrose 50 ml 05/07/25 06:20 Dextrose 50%-Water Inj 50 Ml Syringe IV 06/06/25 06:19 Q15MIN PRN BG <50 OR BG <70 & pt unresponsive Glucagon 1 mg 05/07/25 06:20 Glucagon Inj 1 Mg Vial IM Q15MIN PRN BG <70, and no IV access Hydromorphone HCl 0 mg 05/07/25 15:45 05/07/25 17:25 Hydromorphone 1 Mg/Ml Silver Spray Worker Syringe 30ml [employer]UTCH RE[employer]ILDER 05/12/25 15:44 30 mg UD JANUSZ Administration Protocol Piperacillin/Tazobactam/Dextrose 3.375 gm in 50 mls @ 12.5 mls/hr 05/07/25 14:00 05/08/25 13:50 Zosyn IV 05/14/25 13:59 12.5 mls/hr Q8HR JANUSZ Administration Insulin Human Lispro 0 unit 05/07/25 06:30 05/08/25 17:14 Insulin Lispro (Admelog) 1 Unit/0.01 Ml Unit SC 06/06/25 06:29 Not Given Q6HR JANUSZ Protocol Naloxone HCl 0.4 mg 05/07/25 15:53 Naloxone Inj 1 Mg/Ml Syringe 2 Ml IM 06/06/25 15:52 Q3M PRN OPIATE REVERSAL Plan Summary: A 69-year-old male patient with past medical history of coronary artery disease status post 9 stents to 3 different angiograph, most recent was 2 weeks ago in [place] by Dr. Emery, CHF, diabetes mellitus, hypertension, history of TIA, history of obstructive sleep apnea, history of hypothyroidism, who came to the ED due to acute onset colicky abdominal pain. Patient was found to have SBO, he is n.p.o., patient has recent history of 2 stent placement 2 weeks ago and was on aspirin and Plavix. It was held by general surgeon. Resumed, cardiology team was consulted. #Extensive history of coronary artery disease status post multiple stents placement #History of CHF patient's reported that the patient has his first heart attack in 2015 in which he had his first angiograph and stent placement that was done in [place] by Dr. Harper, after that the patient was follow-up with Dr. Harper when he started to develop some symptoms of shortness of breath and chest pressure another angiogram was done and was found to have multivessel stenosis in which multi stent were placed. And then recently patient was following up with Dr. Emery in [place] and which he recommended another angiogram and he placed a stent as per the . Patient was discharged on aspirin and Plavix since then. His also reported that he also has history of CHF and being followed by Dr. Emery. She denied any history of upper or lower GI bleed and denied any history of intermittent claudication. There is no acute on patient chart, serum creatinine is 1.2, troponin is normal, potassium is 4.2, magnesium 2.2, BNP was not performed. Review of the patient chart from [facility] March 2025 and he did have a cardiac catheterization which did show severe stenosis in LAD and as well as moderate to severe stenosis in RCA. Patient had 2 stents placed on 04/23/2025 which includes a 3.0 x 12 mm Synergy AUSTEN stent in the proximal LAD as well as the mid RCA. The general surgeon Dr. Nichols he recommended to DC the NG tube start clear liquid diet and he gave us the greenlight to start the patient on dual antiplatelets treatment. His last echo was in 2022. Plan ? Start the patient on loading dose Plavix 300 mg p.o. x 1 ? Start the patient on Plavix tomorrow 75 mg p.o. daily ? Start the patient on aspirin 81 mg p.o. daily ? Repeat echocardiogram as last echo was performed in [address] [facility], and usually angiogram may under or overestimate ejection fraction. ? Keep potassium and magnesium above 4 and 2 respectively within normal limits ? Strict in and out. #Acute hypoxic respiratory failure most likely secondary to pneumonia #Hospital-acquired pneumonia versus community-acquired pneumonia #Renal cell carcinoma status post nephrectomy #Intra-abdominal metastasis #History of TIA #History of hypothyroidism #History of diabetes mellitus Plan: - Follow the primary team recommendations Thank you for your consultation, please do not hesitate to reach out if you have any question or concern - Patient's plan and care discussed with my attending, Dr. Shonna Espinoza MD Internal Medicine PGY-3 Attending Provider Attestation/Addendum I have personally seen and examined the patient separately on the above date of service and discussed the plan of care with the resident. I reviewed the resident Dr. Espinoza consultation progress note and agree with the resident findings and plan in the note above and have also edited the documentation to reflect my findings and plan. Patient with a history of significant CAD with multiple stents up to 9 stents as per the patient. Initial stents were placed by Dr. Harper at [facility] almost 15 to 20 years ago. Then later patient did develop heart attack and was admitted at [facility] after which she is continue to follow Dr. Emery. He has last seen his data recovery planner Dr. Emery in March 2025 and he did have a cardiac catheterization which did show severe stenosis in LAD and as well as moderate to severe stenosis in RCA. Patient had 2 stents placed on 04/23/2025 which includes a 3.0 x 12 mm Synergy AUSTEN stent in the proximal LAD as well as the mid RCA. No patient admitted for small bowel obstruction and surgical team Dr. Nichols was consulted and planning for possible surgery. Right now patient is on conservative treatment with NG tube with suction. I did discuss with Dr. Nichols and the plan is to perform a GI small bowel series tomorrow and if patient is improving then plan is to continue medical management or will take the patient for surgery. Ideally patient should be on dual antiplatelet agents at least for a month before stopping the Plavix. Last dose of Plavix and aspirin appears to be more than 24 hours ago. Ideally again patient should be on IV cangrelor drip but it is unavailable in this institution. Will give the patient aspirin rectally for now. Can hold Plavix for 1 day. Recommend to start heparin drip after bolus as per ACS protocol for now. Patient echocardiogram from today reviewed and showed normal LV size and function with an EF of around 60%, normal RV size and function and has been revascularized recently 2 weeks ago as noted above. Patient is mildly elevated but acceptable cardiac risk for the surgery if the plan is for surgery tomorrow morning. Recommend to continue aspirin perioperatively and heparin drip until 2 to 3 hours before the surgery. Recommend to resume the Plavix immediately postoperatively once hemostasis is achieved. Will continue to closely follow-up with the patient. 2024-patient had few bowel movements today and small bowel GI series was also negative and patient was recommended to continue medical management and no further surgeries planned at the present moment. Recommend to restart the patient on dual antiplatelet agents aspirin 81 mg once daily along with Plavix 75 mg once daily and to continue to follow-up with his primary data recovery planner restart all his goal-directed medical therapy as patient's EF did improve to 50 to 55%. Leonides Kilpatrick M.D. Interventional Cardiology
--- NOTE | 2025-05-08 17:29 | ESDS_ITS ---
Planned Discharge Date 05/08/25 DS: Providers Provider Date of admission: 05/07/25 07:56 Primary care physician: Rick Iraheta MD Admitting Provider: Regulo Corado DO Attending Provider on Admission: Regulo Corado DO Consults: 05/07/25 07:10 Consult to General Surgery Stat Comment: SBO Consulting Provider: Adis Nichols 05/07/25 12:23 Consult to Cardiology Routine Comment: Consulting Provider: Leonides Kilpatrick Attending Provider on DC: Regulo Corado DO Discharging Provider: Cecilio Gupta MD DS: Diagnosis Problem List Completed Was Problem List Reviewed/Reconciled?: Yes Hospital Course Hospital Course Hospital course: 69 yr male with a history of Metastatic RCC, CAD s/p stenting 2 weeks ago who presents with 1 day of intractable abdominal pain. The pain started suddenly and was associated with nausea and vomiting. Patient had stable vitals, had diffuse abdominal tenderness on exam, and a CT scan done which demonstrated colonic mal rotation and small bowel obstruction. Patient admitted on 05/[address] Nichols was consulted. NG tube was place and gastro graffin sereis were started. Cardiology Dr. Kilpatrick was also consulted as patient has just had stent placement about 2 weeks ago. Antiplatelets were held for possible surgery for SBO. Gastrograffin series demonstrated contrast in the colon, after which patient had multiple bowel movements and improved pain. His aspirin and plavix were restarted. He tolerated advancement of his diet to solid foods and was subsequently discharged in stable condition. Discharge Diagnoses; #Small Bowel Obstruction Time Spent with Patient Time attestation: Total time spent providing and/or coordinating discharge services: Time spent: Greater than 30 minutes Exam Vital Signs Temp Pulse Resp BP Pulse Ox O2 Del Method 97.3 F 79 18 125/79 97 Room Air 05/08/25 11:45 05/08/25 16:00 05/08/25 11:45 05/08/25 11:45 05/08/25 11:45 05/08/25 11:45 Narrative Exam General: Elderly patient, appears younger than stated age, relaxed. HEENT: No JVD noted. Mucosa moist. Pupils are equal Cardiovascular: Normal S1 and S2. Regular rate and rhythm. No murmur appreciated Respiratory: Clear to auscultation bilaterally without wheezes or crackles. Abdomen: Soft, nontender, not distended, Skin: Dry, no rashes or bruising Musculoskeletal: No gross injuries. Able to move all 4 extremities. Non edematous lower extremities. Neuro: Alert and oriented x3. No focal neuro deficits. Psych: Normal affect and mood Discharge Plan Plan Patient Disposition: HOME (Self Care) Patient condition on transfer: Stable Prescriptions/Referrals Prescriptions/Med Rec: Continued ezetimibe 10 mg tablet 10 mg PO QDAY carvedilol [Coreg] 6.25 mg tablet 6.25 mg PO DAILY PRN (Reason: Hypertension) Rx Instructions: must administer with a meal/food. clopidogrel 75 mg tablet 75 mg PO QDAY Entresto 49-51 mg tablet 1 tab PO BID furosemide 20 mg tablet 20 mg PO QDAY tamsulosin 0.4 mg capsule 0.4 mg PO QHS spironolactone 25 mg tablet 25 mg PO QDAY atorvastatin 80 mg Tablet 80 mg PO QDAY aspirin 81 mg Tablet,Chewable 81 mg PO QDAY metoprolol succinate 100 mg tablet extended release 24 hr 100 mg PO DAILY Patient Comments: TAKE 1 TABLET BY MOUTH DAILY metformin 1,000 mg tablet 1,000 mg PO BID Patient Comments: TAKE 1 TABLET BY MOUTH TWICE DAILY WITH A MEAL Rx Instructions: with a meal hydrocortisone 5 mg Tablet 5 mg PO BID nitroglycerin 0.4 mg Tablet, Sublingual 0.4 mg BUCCAL PRN PRN (Reason: Chest Pain) Referrals: Rick Iraheta MD [Primary Care Provider, Family Practice] Patient/Caregiver Discharge Instructions Other Discharge Activity Instructions:: Resume previous medications. Gradually increase physical activity. Avoid heavy lifting. Eat small, light, frequent meals. Follow up with PCP in 1-2 weeks. Follow up with cardiology in 1 week. Education Materials: Abdominal Pain, Small Bowel Obstruction Print Language: Andorran Stand Alone Forms: Hailee Award Info., Patient Portal Info Letter Discharge Order Discharge Orders: Discharge (Routine); Ordered 05/08/25 Ordered By: Britta Nicholson Quality Discharge Quality Measures none Attestestation MD Attestation I have discussed and was present for the essential components of the discharge history, physical examination, diagnosis, and discharge treatment plan with the resident. I agree with the patient's discharge care as documented by the resident and amended herein by me. Mack Corado DO. The patient understood all discharge instructions, all questions were answered satisfactorily. The patient was instructed to return to the Emergency Department is symptoms worsened or persisted. SBO resolved, patient tolerating diet well, has had multiple bowel movements since NG tube removed, imaging demonstrated SBO has resolved. Patient was stable, afebrile, tolerating p.o. intake and ambulatory at time of discharge home. Although this document has been carefully reviewed, there may still be some phonetic and other typographical errors. These errors are purely grammatical due to imperfections in the software program and should not be construed in any way to compromise the substance of the patient's medical care during this visit.
== END 2025-05-08 18:40 | disposition home or self-care (01) | DRG 388 ==
LOC: SERX 06:10 → SERHOLD 08:30 → S3NX 09:21
PROVIDERS: Emergency Medicine; Internal Medicine Cardiovascular Disease; Student in an Organized Health Care Education/Training Program; Admitting Provider Student in an Organized Health Care Education/Training Program; Emergency Provider Emergency Medicine; PCP Family Medicine; Visit Provider Student in an Organized Health Care Education/Training Program
DX: K56.609 Unspecified intestinal obstruction, unspecified as to partial versus complete obstruction (principal); J69.0 Pneumonitis due to inhalation of food and vomit; G47.33 Obstructive sleep apnea (adult) (pediatric); Z95.5 Presence of coronary angioplasty implant and graft; I25.10 Atherosclerotic heart disease of native coronary artery without angina pectoris; I11.0 Hypertensive heart disease with heart failure; I50.9 Heart failure, unspecified; E11.9 Type 2 diabetes mellitus without complications; I25.2 Old myocardial infarction; Y95 Nosocomial condition; Z79.02 Long term (current) use of antithrombotics/antiplatelets; Z79.82 Long term (current) use of aspirin; Z79.84 Long term (current) use of oral hypoglycemic drugs; Z85.528 Personal history of other malignant neoplasm of kidney; Z85.07 Personal history of malignant neoplasm of pancreas; Z86.73 Personal history of transient ischemic attack (TIA), and cerebral infarction without residual deficits; Z90.5 Acquired absence of kidney
CPT/HCPCS: 36415; 71260; 74018; 74177; 74250; 80053; 81001; 82010; 82150; 82248; 82803; 83605; 83690; 83735; 84100; 84145; 85025; 85610; 85652; 85730; 86140; 87040; 93306; 94762; 96361; 96365; 96366; 96375; 96376; 99284; A4649; J1171; J1644; J1815; J2405; J2470; J2543; J3490; J7030; J7120; Q9963; Q9967; A9270